=== PATIENT | male | born 1940 | race American Indian/Alaskan Native ===

== ENCOUNTER 2016-03-31 16:57 | Emergency (ER) | payer MEDICARE ==
[2016-03-31 19:59] LABS: Basophils % (Auto) 0.4 % (0.0-1.8); Eosinophils % (Auto) 1.7 % (0.0-4.3); Hematocrit 38.8 % (35.5-45.6); Hemoglobin 12.6 gm/dl (11.8-15.2); Mean Corpuscular HGB Conc 32 % (32-34); Mean Corpuscular Hemoglobin 32 pg (28-32); Mean Corpuscular Volume 98 fl (84-94); Platelet Count 132 K/mm3 (140-440); Red Blood Count 3.98 M/mm3 (3.65-5.03); Red Cell Distribution Width 15.5 % (13.2-15.2); White Blood Count 10.1 K/mm3 (4.5-11.0)
[2016-03-31 20:16] LABS: Creatine Kinase MB 24.1 ng/mL (0.0-4.0)
[2016-03-31 20:18] LABS: BUN/Creatinine Ratio 4.23; Calcium 7.9 mg/dL (8.4-10.2); Chloride 94.7 mmol/L (98-107); Potassium 4.1 mmol/L (3.6-5.0)
--- NOTE | 2016-03-31 20:23 | Emergency Department Report ---
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 Apparently patient's blood pressure with sweating throughout dialysis treatment today. Patient reports feeling better. Blood pressure 96/53 upon arrival in systolic 107 during my examination at the bedside. Patient complains of right hand pain has been ongoing since IV infiltration in the hospital week or 2 ago. No reports of fever, chest pain, shortness of breath, or abdominal pain. Health Claims Examiner: Dr. Gilbert - Related Data Home Medications Medication Instructions Recorded Confirmed Last Taken Acetaminophen [Acetaminophen TAB] 650 mg PO Q6HR PRN 03/11/16 03/31/16 03/24/16 Aspirin [Aspirin TAB] 325 mg PO QDAY 03/11/16 03/31/16 03/21/16 Carvedilol [Coreg] 25 mg PO BID 03/11/16 03/31/16 03/25/16 Insulin Glargine,Hum.rec.anlog 20 units SQ QHS 03/11/16 03/31/16 03/23/16 [Lantus Solostar] Insulin Glulisine [Apidra] 0 units SQ AC 03/11/16 03/31/16 03/23/16 Lactulose 10 gm PO QDAY 03/11/16 03/31/16 Unknown Promethazine [Phenergan TAB] 25 mg PO Q6HR PRN 03/11/16 03/31/16 Unknown Sennosides [Senna] 2 tab PO QDAY 03/11/16 03/31/16 03/23/16 Warfarin [Coumadin] 5 mg PO QDAY 03/11/16 03/31/16 03/21/16 Sevelamer Carbonate [Renvela] 800 mg PO TIDWM 03/31/16 03/31/16 Unknown Torsemide [Demadex] 20 mg PO BID 03/31/16 03/31/16 Unknown Previous Rx's Medication Instructions Recorded Last Taken Type Cilostazol [Pletal] 100 mg PO BID #60 tablet 04/29/15 02/12/17 Rx Simvastatin [Zocor TAB] 40 mg PO QHS #30 tablet 12/06/15 03/23/16 Rx oxyCODONE /ACETAMINOPHEN [Percocet 1 - 2 tab PO Q4HR #40 tab 03/26/16 Unknown Rx 5/325] Allergies Allergy/AdvReac Type Severity Reaction Status Date / Time No Known Allergies Allergy Verified 11/30/15 00:22 ED Review of Systems ROS: Stated complaint: AMS/LOW BP Other details as noted in HPI Comment: All other systems reviewed and negative Other: Constitutional: No fevers chills Eyes: No eye pain visual changes ENT: No ear pain or throat pain Neck: Denies pain Respiratory: Denies cough wheezing shortness of breath Cardiovascular: Denies chest pain, palpitations GI: Denies abdominal pain, nausea, vomiting, diarrhea : Denies dysuria Musculoskeletal: right hand pain as per hpi Skin: Denies rash, lesions, erythema Neurologic: Denies headache, numbness, weakness Psychiatric: Denies suicidal ideation, hallucinations ED Past Medical Hx - Past Medical History Previous Medical History?: Yes Hx Hypertension: Yes (10 YRS) Hx Heart Attack/AMI: No Hx Congestive Heart Failure: Yes Hx Diabetes: Yes (MANY YEARS) Hx GERD: Yes Hx Liver Disease: No Hx Renal Disease: Yes (dialysis M/W/F) Hx Arthritis: Yes (HANDS AND FEET) Hx Asthma: No - Surgical History Past Surgical History?: Yes Additional Surgical History: peritoneal dialysis port, AV graft to left forearm - Social History Smoking Status: Never Smoker Substance Use Type: None - Medications Home Medications: Home Medications Medication Instructions Recorded Confirmed Last Taken Type Cilostazol [Pletal] 100 mg PO BID #60 tablet 06/07/14 03/31/16 03/23/16 Rx Simvastatin [Zocor TAB] 40 mg PO QHS #30 tablet 12/06/15 03/31/16 03/23/16 Rx Acetaminophen [Acetaminophen TAB] 650 mg PO Q6HR PRN 03/11/16 03/31/16 03/24/16 History Aspirin [Aspirin TAB] 325 mg PO QDAY 03/11/16 03/31/16 03/21/16 History Carvedilol [Coreg] 25 mg PO BID 03/11/16 03/31/16 03/25/16 History Insulin Glargine,Hum.rec.anlog 20 units SQ QHS 03/11/16 03/31/16 03/23/16 History [Lantus Solostar] Insulin Glulisine [Apidra] 0 units SQ AC 03/11/16 03/31/16 03/23/16 History Lactulose 10 gm PO QDAY 03/11/16 03/31/16 Unknown History Promethazine [Phenergan TAB] 25 mg PO Q6HR PRN 03/11/16 03/31/16 Unknown History Sennosides [Senna] 2 tab PO QDAY 03/11/16 03/31/16 03/23/16 History Warfarin [Coumadin] 5 mg PO QDAY 03/11/16 03/31/16 03/21/16 History oxyCODONE /ACETAMINOPHEN [Percocet 1 - 2 tab PO Q4HR #40 tab 03/26/16 03/31/16 Unknown Rx 5/325] Sevelamer Carbonate [Renvela] 800 mg PO TIDWM 03/31/16 03/31/16 Unknown History Torsemide [Demadex] 20 mg PO BID 03/31/16 03/31/16 Unknown History ED Physical Exam - General Limitations: No Limitations - Other Other exam information: General: No limitations, patient is alert in no acute distress Head exam: Atraumatic, normocephalic Eyes exam: Normal appearance, pupils equal reactive to light, extraocular movements intact ENT: Moist mucous membrane, normal oropharynx Neck exam: Normal inspection, full range of motion Respiratory exam: Clear to auscultation bilateral, no wheezes, rales, crackles Cardiovascular: Normal rate and rhythm, systolic murmur Abdomen: Soft, nondistended, and nontender, with normal bowel sounds, no rebound, or guarding Extremity: Full range of motion dorsum of right hand has a 10 x 7 cm bulla tenderness to palpation Back: Normal Inspection, full range of motion, no tenderness Neurologic: Alert, oriented x3, cranial nerves intact, no motor or sensory deficit Psychiatric: normal affect, normal mood Skin: Warm, dry, intact ED Course Vital Signs 03/31/16 03/31/16 03/31/16 18:12 18:20 18:21 Temperature 98 F Pulse Rate 91 H 89 Respiratory 13 14 Rate Blood Pressure 96/53 96/53 O2 Sat by Pulse 96 92 96 Oximetry 03/31/16 03/31/16 03/31/16 18:30 18:40 18:50 Temperature Pulse Rate 120 H 94 H 90 Respiratory 9 L 10 L 9 L Rate Blood Pressure 110/58 110/58 120/56 O2 Sat by Pulse 96 98 99 Oximetry 03/31/16 03/31/16 03/31/16 19:00 19:18 19:32 Temperature 98.0 F Pulse Rate 85 Respiratory 8 L 18 Rate Blood Pressure 101/36 O2 Sat by Pulse 94 98 Oximetry - Reevaluation(s) Reevaluation #1: 03/31/16 21:11 Patient remained stable and not orthostatic - Consultations Consultation #1: 03/31/16 20:[address] Betancur commissions specialist for Dr. Laughlin. Since ED workup was unremarkable and patient remains normotensive recommends patient may be discharged. - Lab Data Result diagrams: 03/31/16 19:30 03/31/16 19:30 Lab Results 03/31/16 03/31/16 Range/Units 19:30 19:30 WBC 10.1 (4.5-11.0) K/mm3 RBC 3.98 (3.65-5.03) M/mm3 Hgb 12.6 (11.8-15.2) gm/dl Hct 38.8 (35.5-45.6) % MCV 98 H (84-94) fl MCH 32 (28-32) pg MCHC 32 (32-34) % RDW 15.5 H (13.2-15.2) % Plt Count 132 L (140-440) K/mm3 Lymph % (Auto) 18.2 (13.4-35.0) % Villalba % (Auto) 8.0 H (0.0-7.3) % Eos % (Auto) 1.7 (0.0-4.3) % Baso % (Auto) 0.4 (0.0-1.8) % Lymph # 1.8 (1.2-5.4) K/mm3 Villalba # 0.8 (0.0-0.8) K/mm3 Eos # 0.2 (0.0-0.4) K/mm3 Baso # 0.0 (0.0-0.1) K/mm3 Seg Neutrophils % 71.7 H (40.0-70.0) % Seg Neutrophils # 7.2 (1.8-7.7) K/mm3 Sodium 136 L (137-145) mmol/L Potassium 4.1 (3.6-5.0) mmol/L Chloride 94.7 L (98-107) mmol/L Carbon Dioxide 23 D (22-30) mmol/L Anion Gap 22 mmol/L BUN 25 H (9-20) mg/dL Creatinine 5.9 H (0.8-1.5) mg/dL Estimated GFR 11 ml/min BUN/Creatinine Ratio 4.23 % Glucose 122 H (75-100) mg/dL Calcium 7.9 L (8.4-10.2) mg/dL CK-MB (CK-2) 24.1 H (0.0-4.0) ng/mL Troponin T 0.196 H* (0.00-0.029) ng/mL Triglycerides 122 (2-149) mg/dL Cholesterol 119 (50-199) mg/dL LDL Cholesterol Direct 62 (50-130) mg/dL HDL Cholesterol 33 L (40-59) mg/dL Cholesterol/HDL Ratio 3.60 % - EKG Data -: EKG Interpreted by Me (sinus tachy 119, premature ventricular contractions, lafb) - Medical Decision Making Patient be discharged home. Transient hypotension and altered mental status likely secondary to iron depletion during dialysis. Patient now back to normal. Labs unremarkable. Presents chronic troponin elevation which is consistent with previous labs. Will be discharged home with follow-up - Differential Diagnosis volumdepletion, infect hypotension, encephalopathy, electrolyte abnormality Critical Care Time: No Critical care attestation.: If time is entered above; I have spent that time in minutes in the direct care of this critically ill patient, excluding procedure time. ED Disposition Clinical Impression: Transient hypotension, ESRD (end stage renal disease) on dialysis, [place] Disposition: DISCHARGED TO HOME OR SELFCARE Is pt being admited?: No Does the pt Need Aspirin: No Condition: Stable Instructions: Chronic Kidney Disease (ED) Additional Instructions: Continue current medications as prescribed. Return if symptoms worsen. Referrals: PRIMARY CARE, [Primary Care Provider] - 2-3 Days Time of Disposition: 21:12
[2016-04-01 00:53] VITALS: BP 127/61
== END 2016-04-01 00:05 | disposition home or self-care (01) ==
LOC: ED 16:57
DX: I95.89 Other hypotension (principal); I12.0 Hypertensive chronic kidney disease with stage 5 chronic kidney disease or end stage renal disease; N18.6 End stage renal disease; E11.9 Type 2 diabetes mellitus without complications; I50.9 Heart failure, unspecified; K21.9 Gastro-esophageal reflux disease without esophagitis; M19.079 Primary osteoarthritis, unspecified ankle and foot; M13.88 Other specified arthritis, other site; Z79.4 Long term (current) use of insulin
CPT/HCPCS: 36415; 80048; 80061; 82550; 82553; 84484; 85025; 93005; 93010

== ENCOUNTER 2016-04-22 22:48 | Emergency (ER) | payer MEDICARE ==
[2016-04-23 01:47] LABS: Basophils % (Auto) 0.4 % (0.0-1.8); Eosinophils % (Auto) 1.6 % (0.0-4.3); Hematocrit 37.2 % (35.5-45.6); Hemoglobin 11.9 gm/dl (11.8-15.2); Mean Corpuscular HGB Conc 32 % (32-34); Mean Corpuscular Hemoglobin 30 pg (28-32); Mean Corpuscular Volume 94 fl (84-94); Platelet Count 202 K/mm3 (140-440); Red Blood Count 3.94 M/mm3 (3.65-5.03); White Blood Count 5.7 K/mm3 (4.5-11.0)
[2016-04-23] MEDS ORDERED: ZOFRAN ODT PO ONE (02:15)
[2016-04-23] MEDS ORDERED: MORPHINE IM ONE (02:15)
--- NOTE | 2016-04-23 02:18 | Emergency Department Report ---
HPI - General Chief Complaint: Pain General Time Seen by Provider: 04/23/16 01:48 - HPI HPI: The patient is a 76-year-old male who presents for evaluation of recurrence of right groin pain. He states that his pain has been present for the past one week, 9/10 in severity, throbbing in quality, exacerbated with standing and attempts to ambulate, improved with lying flat and rest. He shares that he was evaluated here in this emergency department within the past one week, and diagnosed with inguinal hernia. He states that he followed up with his PCP earlier today and has scheduled an appointment with surgery regarding his hernia. He denies trauma to the right groin, abdominal pain, testicular pain, testicular swelling, redness, bruising, or swelling to the right groin, nausea, vomiting, inability to pass flatus or defecate. ED Past Medical Hx - Past Medical History Hx Hypertension: Yes (10 YRS) Hx CVA: Yes Hx Heart Attack/AMI: No Hx Congestive Heart Failure: Yes Hx Diabetes: Yes (MANY YEARS) Hx GERD: Yes Hx Liver Disease: No Hx Renal Disease: Yes (dialysis M/W/F) Hx Arthritis: Yes (HANDS AND FEET) Hx Asthma: No Additional medical history: v-fib, Inguinal hernia - Surgical History Past Surgical History?: Yes Additional Surgical History: peritoneal dialysis port, AV graft to left forearm - Social History Smoking Status: Never Smoker Substance Use Type: None - Medications Home Medications: Home Medications Medication Instructions Recorded Confirmed Last Taken Type Cilostazol [Pletal] 100 mg PO BID #60 tablet 06/07/14 04/23/16 03/23/16 Rx Simvastatin [Zocor TAB] 40 mg PO QHS #30 tablet 12/06/15 04/23/16 03/23/16 Rx Acetaminophen [Acetaminophen TAB] 650 mg PO Q6HR PRN 03/11/16 04/23/16 03/24/16 History Aspirin [Aspirin TAB] 325 mg PO QDAY 03/11/16 04/23/16 03/21/16 History Carvedilol [Coreg] 25 mg PO BID 03/11/16 04/23/16 03/25/16 History Insulin Glargine,Hum.rec.anlog 20 units SQ QHS 03/11/16 04/23/16 03/23/16 History [Lantus Solostar] Insulin Glulisine [Apidra] 0 units SQ AC 03/11/16 04/23/16 03/23/16 History Lactulose 10 gm PO QDAY 03/11/16 04/23/16 Unknown History Promethazine [Phenergan TAB] 25 mg PO Q6HR PRN 03/11/16 04/23/16 Unknown History Sennosides [Senna] 2 tab PO QDAY 03/11/16 04/23/16 03/23/16 History Warfarin [Coumadin] 5 mg PO QDAY 03/11/16 04/23/16 03/21/16 History Sevelamer Carbonate [Renvela] 800 mg PO TIDWM 03/31/16 04/23/16 Unknown History Torsemide [Demadex] 20 mg PO BID 03/31/16 04/23/16 Unknown History Sulfamethoxazole/Trimethoprim 1 each PO BID #20 tablet 04/19/16 04/23/16 Unknown Rx [Bactrim DS TAB] Oxycodone HCl/Acetaminophen 1 each PO Q6HR PRN #20 tablet 04/23/16 Unknown Rx [Percocet 10/325 mg] ED Review of Systems ROS: Stated complaint: GROIN PAIN/HERNIA Other details as noted in HPI Constitutional: denies: fever ENT: denies: throat or neck pain Respiratory: denies: cough, shortness of breath Cardiovascular: denies: chest pain Endocrine: denies unexplained weight loss or gain Gastrointestinal: reports inguinal hernia denies: abdominal pain, nausea Genitourinary: denies: dysuria Musculoskeletal: denies: leg swelling Skin: denies: rash Neurological: denies: headache Hematological/Lymphatic: denies: easy bleeding or easy bruising Psych: denies sadness or hopelessness Physical Exam - Physical Exam Vital Signs: Vital Signs 04/22/16 04/22/16 04/22/16 22:56 23:00 23:02 Temperature 97 F L Blood Pressure 97/29 O2 Sat by Pulse 95 93 Oximetry 04/22/16 04/22/16 23:04 23:06 Temperature Blood Pressure 97/29 97/29 O2 Sat by Pulse 97 95 Oximetry Physical Exam: General: well-nourished, well-developed, no acute distress Head: Normocephalic, atraumatic Eyes: normal sclera ENT: Mucous membranes are pink and moist Neck: trachea midline, neck supple Respiratory: Breath sounds equal bilaterally, no wheezing, rales, or rhonchi Cardio: S1 and S2 present, no murmurs, rubs, gallops, capillary refill is brisk Abdomen: Normoactive bowel sounds, soft abdomen, no tenderness : Reducible right inguinal hernia present, tender to palpation, no testicular tenderness, swelling, or redness Chest WALL/Back: No tenderness to palpation of the chest wall, no CVA tenderness with percussion Musc: No hip tenderness bilaterally, no hip pain elicited with range of motion of the hips, No pitting edema Skin: No rash Neuro: no facial drooping, normal speech Psych: Normal affect ED Course Vital Signs 04/22/16 04/22/16 04/22/16 22:56 23:00 23:02 Temperature 97 F L Blood Pressure 97/29 O2 Sat by Pulse 95 93 Oximetry 04/22/16 04/22/16 23:04 23:06 Temperature Blood Pressure 97/29 97/29 O2 Sat by Pulse 97 95 Oximetry ED Medical Decision Making - Lab Data Result diagrams: 04/23/16 01:09 04/23/16 01:09 - Medical Decision Making The patient was seen and examined by myself. The patient is placed on a lunchroom monitor and continuous pulse ox. On initial evaluation, the patient was found to be in no distress. Evaluation orders were placed. The patient is given IM morphine for his pain. Medical records are reviewed and revealed that the patient received a ultrasound within the past week that is positive for inguinal hernia with Valsalva. CT scan of the abdomen and pelvis was negative for any bowel incarceration or strangulation. Lab results today revealed elevated creatinine of 6.7, grossly patient baseline for known end-stage renal disease. Otherwise labs were not concerning including normal potassium level and WBC. The patient was reevaluated and reported that their symptoms were markedly improved. The patient is stable for discharge with outpatient follow-up. The patient is given follow-up and return instructions. The patient expressed understanding and agreed with the plan. The patient is discharged in stable condition. Critical care attestation.: If time is entered above; I have spent that time in minutes in the direct care of this critically ill patient, excluding procedure time. ED Disposition Clinical Impression: Right groin pain, ESRD on peritoneal dialysis Inguinal hernia Qualifiers: Obstruction and gangrene presence: without obstruction or gangrene Laterality: unilateral Recurrence: recurrent Qualified Code(s): K40.91 - Unilateral inguinal hernia, without obstruction or gangrene, recurrent Disposition: DISCHARGED TO HOME OR SELFCARE Is pt being admited?: No Does the pt Need Aspirin: No Condition: Stable Instructions: Chronic Kidney Disease (ED), Inguinal Hernia (ED), Groin Pain (ED ) Prescriptions: Oxycodone HCl/Acetaminophen [Percocet 10/325 mg] 1 each PO Q6HR PRN #20 tablet PRN Reason: Pain Referrals: EL MAYERS MD [Primary Care Provider] - 3-5 Days WILBUR PERKINS MD [Staff Physician] - 3-5 Days OTF LOWERY MD [Staff Physician] - 3-5 Days Time of Disposition: 02:17
[2016-04-23 02:21] LABS: Albumin/Globulin Ratio 0.6 %; BUN/Creatinine Ratio 3.43; Bilirubin,Total 0.2 mg/dL (0.1-1.2); Calcium 8.4 mg/dL (8.4-10.2); Chloride 94.6 mmol/L (98-107); Potassium 4.7 mmol/L (3.6-5.0); Total Protein 7.8 g/dL (6.3-8.2)
[2016-04-23 06:16] VITALS: BP 124/39
== END 2016-04-23 06:08 | disposition home or self-care (01) ==
LOC: ED 22:48
DX: K40.91 Unilateral inguinal hernia, without obstruction or gangrene, recurrent (principal); R10.30 Lower abdominal pain, unspecified; I12.0 Hypertensive chronic kidney disease with stage 5 chronic kidney disease or end stage renal disease; N18.6 End stage renal disease; Z86.73 Personal history of transient ischemic attack (TIA), and cerebral infarction without residual deficits; I50.9 Heart failure, unspecified; E11.9 Type 2 diabetes mellitus without complications; M19.90 Unspecified osteoarthritis, unspecified site; Z79.4 Long term (current) use of insulin
CPT/HCPCS: 36415; 80053; 85025; 96372; 99284; J2270; Q0162

== ENCOUNTER 2016-04-29 13:09 | Emergency (ER) | payer MEDICARE ==
[2016-04-29 13:34] VITALS: BP 106/48
--- NOTE | 2016-04-29 14:33 | Emergency Department Report ---
HPI - General Chief Complaint: Abdominal Pain Time Seen by Provider: 04/29/16 13:54 - HPI HPI: This is a 76-year-old -Citizen Of [place] male who presents to the emergency department from the surgeon's office, Dr. Abdul, for evaluation of possible right groin hernia. The patient says that he has been having some swelling and pain to the groin, mostly when he is upright or standing, for the past 3 weeks. He denies any nausea, vomiting, problems with bowel movements, fever. Patient does not make urine as he is end-stage renal disease on dialysis on Thursday, Thursday and Thursday. He also has a history of CHF, CVA, diabetes, GERD , hypertension. He was sent in to be seen for evaluation of this possible hernia because the patient does have some chronic debility and the surgeon was unable to stand him upright to do a proper evaluation. ED Past Medical Hx - Past Medical History Previous Medical History?: Yes Hx Hypertension: Yes (10 YRS) Hx CVA: Yes Hx Heart Attack/AMI: No Hx Congestive Heart Failure: Yes Hx Diabetes: Yes (MANY YEARS) Hx GERD: Yes Hx Liver Disease: No Hx Renal Disease: Yes (dialysis M/W/F) Hx Arthritis: Yes (HANDS AND FEET) Hx Asthma: No Additional medical history: v-fib - Surgical History Past Surgical History?: Yes Additional Surgical History: peritoneal dialysis port, AV graft to left forearm - Social History Smoking Status: Never Smoker Substance Use Type: None - Medications Home Medications: Home Medications Medication Instructions Recorded Confirmed Last Taken Type Cilostazol [Pletal] 100 mg PO BID #60 tablet 06/07/14 04/23/16 03/23/16 Rx Simvastatin [Zocor TAB] 40 mg PO QHS #30 tablet 12/06/15 04/23/16 03/23/16 Rx Acetaminophen [Acetaminophen TAB] 650 mg PO Q6HR PRN 03/11/16 04/23/16 03/24/16 History Aspirin [Aspirin TAB] 325 mg PO QDAY 03/11/16 04/23/16 03/21/16 History Carvedilol [Coreg] 25 mg PO BID 03/11/16 04/23/16 03/25/16 History Insulin Glargine,Hum.rec.anlog 20 units SQ QHS 03/11/16 04/23/16 03/23/16 History [Lantus Solostar] Insulin Glulisine [Apidra] 0 units SQ AC 03/11/16 04/23/16 03/23/16 History Lactulose 10 gm PO QDAY 03/11/16 04/23/16 Unknown History Promethazine [Phenergan TAB] 25 mg PO Q6HR PRN 03/11/16 04/23/16 Unknown History Sennosides [Senna] 2 tab PO QDAY 03/11/16 04/23/16 03/23/16 History Warfarin [Coumadin] 5 mg PO QDAY 03/11/16 04/23/16 03/21/16 History Sevelamer Carbonate [Renvela] 800 mg PO TIDWM 03/31/16 04/23/16 Unknown History Torsemide [Demadex] 20 mg PO BID 03/31/16 04/23/16 Unknown History Sulfamethoxazole/Trimethoprim 1 each PO BID #20 tablet 04/19/16 04/23/16 Unknown Rx [Bactrim DS TAB] Oxycodone HCl/Acetaminophen 1 each PO Q6HR PRN #20 tablet 04/23/16 Unknown Rx [Percocet 10/325 mg] ED Review of Systems ROS: Stated complaint: HERNIA Other details as noted in HPI Comment: All other systems reviewed and negative Constitutional: denies: chills, fever Eyes: denies: eye pain, eye discharge, vision change ENT: denies: ear pain, throat pain Respiratory: denies: cough, shortness of breath, wheezing Cardiovascular: denies: chest pain, palpitations Gastrointestinal: denies: nausea, vomiting Genitourinary: other (groin pain, possible hernia). denies: dysuria, frequency Musculoskeletal: denies: back pain, joint swelling, arthralgia Skin: denies: rash, lesions Neurological: denies: headache, weakness, paresthesias Physical Exam - Physical Exam Vital Signs: Vital Signs 04/29/16 13:29 Temperature 98.2 F Pulse Rate 81 Respiratory 20 Rate Blood Pressure 106/48 O2 Sat by Pulse 94 Oximetry Physical Exam: GENERAL: The patient is well-developed well-nourished. HEENT: Normocephalic. Atraumatic. Extraocular motions are intact. Patient has moist mucous membranes. Pupils equal reactive to light bilaterally. NECK: Supple. Trachea is midline. CHEST/LUNGS: Clear to auscultation. There is no respiratory distress noted. HEART/CARDIOVASCULAR: Regular. There is no tachycardia. There is no gallop rub or murmur. ABDOMEN: Abdomen is soft, nontender. Patient has normal bowel sounds. There is no abdominal distention. SKIN: Skin is warm and dry. Patient has his right hand bandaged. NEURO: The patient is awake, alert, and oriented. The patient is cooperative. The patient has no focal neurologic deficits. The patient has normal speech. MUSCULOSKELETAL: There is no tenderness or deformity. There is no evidence of acute injury. : Normal-appearing penis and scrotum without lesions. No tenderness to palpation to either region. There is no palpable indirect hernia. I'm able to palpate a mild right-sided direct reducible hernia. ED Course Vital Signs 04/29/16 13:29 Temperature 98.2 F Pulse Rate 81 Respiratory 20 Rate Blood Pressure 106/48 O2 Sat by Pulse 94 Oximetry - Consultations Consultation #1: The patient was seen and examined by the general surgeon, Dr. Elisabeth hernandez, in the emergency department. The emergency department staff helped to get the patient up and standing and the patient does have a right direct hernia but it is reducible. The surgeon feels that the patient is safe for discharge back to follow-up with his primary care doctor and if necessary back with the surgeon himself. 04/29/16 14:32 ED Medical Decision Making - Medical Decision Making This is a 76-year-old male who was sent in by his general surgeon so that the surgeon himself could evaluate him in the emergency department with the assistance of emergency department staff to help the patient stand so that he can be assessed for possible incarcerated or strangulated inguinal hernia. I saw the patient first and there is some palpable but reproducible right direct inguinal hernia. Patient's vital signs stable throughout his ED course. The general surgeon then came into the emergency department and also during evaluation confirming that there is a reducible right-sided direct inguinal hernia and that this does not need any further surgical or medical intervention at this time. The patient has good follow-up with his primary care doctor's and can continue following up with the surgeon if necessary. I discussed with the patient at length reasons to return for reevaluation of this hernia but also to return with any acute distress. He understands and agrees the plan. - Differential Diagnosis hernia, abscess, muscle strain Critical Care Time: No Critical care attestation.: If time is entered above; I have spent that time in minutes in the direct care of this critically ill patient, excluding procedure time. ED Disposition Clinical Impression: Direct hernia Disposition: DISCHARGED TO HOME OR SELFCARE Is pt being admited?: No Condition: Stable Instructions: Inguinal Hernia (ED) Additional Instructions: Please follow-up with your primary care doctor and the general surgeon regarding your hernia. Return to the emergency department with any worsening of your discomfort, if the hernia pops out and you are unable to get it back in place, or with any acute distress. Referrals: EL MAYERS MD [Primary Care Provider] - 3-5 Days ANJALI ABDUL MD [Staff Physician] - 3-5 Days Time of Disposition: 14:33
== END 2016-04-29 15:14 | disposition home or self-care (01) ==
LOC: ED 13:09
DX: K40.90 Unilateral inguinal hernia, without obstruction or gangrene, not specified as recurrent (principal); I10 Essential (primary) hypertension; I63.9 Cerebral infarction, unspecified; I50.9 Heart failure, unspecified; E11.9 Type 2 diabetes mellitus without complications; K21.9 Gastro-esophageal reflux disease without esophagitis; M19.90 Unspecified osteoarthritis, unspecified site; Z79.82 Long term (current) use of aspirin; Z79.4 Long term (current) use of insulin; Z79.01 Long term (current) use of anticoagulants
CPT/HCPCS: 99282

== ENCOUNTER 2016-05-01 09:41 | Outpatient (CLI) | payer MEDICARE ==
[2016-05-01] MEDS ORDERED: XYLOCAINE TOPICAL 4% TP ONE ×2 (10:04→16:05)
== END 2016-05-01 09:42 | disposition home or self-care (01) ==
LOC: WOUND 09:41
PROVIDERS: ATTEND Nurse Practitioner
DX: S61.401A Unspecified open wound of right hand, initial encounter (principal); E08.622 Diabetes mellitus due to underlying condition with other skin ulcer; L98.6 Other infiltrative disorders of the skin and subcutaneous tissue; R01.1 Cardiac murmur, unspecified; E09.22 Drug or chemical induced diabetes mellitus with diabetic chronic kidney disease; N18.6 End stage renal disease; X58.XXXA Exposure to other specified factors, initial encounter; Y93.89 Activity, other specified; Y92.89 Other specified places as the place of occurrence of the external cause; Y99.8 Other external cause status
CPT/HCPCS: 99203; 99213; G0463

== ENCOUNTER 2016-06-05 10:58 | Outpatient (CLI) | payer MEDICARE ==
[2016-06-05] MEDS ORDERED: LEXISCAN IV ONE (12:28)
[2016-06-05 13:21] VITALS: BP 116/55
--- NOTE | 2016-06-05 22:26 | Treadmill Report ---
THALLIUM STRESS TEST LEFT VENTRICLE: Left ventricular chamber size is within normal limits. Perfusion study demonstrates homogeneous uptake of the tracer in all segments. No significant defects identified. Gated analysis demonstrates normal left ventricular systolic function, ejection fraction 67%. CONCLUSION: Normal myocardial perfusion study. JOB# [id number] CA/NTS
== END 2016-06-05 10:59 | disposition home or self-care (01) ==
LOC: CARD 10:58
PROVIDERS: ATTEND Internal Medicine Cardiovascular Disease
DX: R94.31 Abnormal electrocardiogram [ECG] [EKG] (principal)
CPT/HCPCS: 78452; 93017; A9502; J2785

== ENCOUNTER 2016-07-04 12:48 | Observation (INO) | payer MEDICARE ==
--- NOTE | 2016-06-30 21:13 | Admit Criteria Form ---
Admission Criteria Documentation: AMBULATORY SURGERY EXCEPTION CRITERIA Ambulatory Surgery Exception Criteria ( Place 'X' for any and all applicable criteria): Surgery or procedure performed on ambulatory basis may require inpatient stay for[A] ANY ONE of the following(1)(2)(3)(4)(5)(6)(7)(8)(9): [X] I. A preoperative situation, condition, or finding that warrants inpatient stay as indicated by ANY ONE of the following: [] a) Inpatient care needed because of severity of a disease or condition rather than the surgery (eg, severe cardiac or respiratory disease, severe infection) (15) (16 ) (17) (18) [] b) Emergent procedure (eg, angioplasty for acute ischemia)(19) [X] c) Complex surgical approach or situation as indicated by ANY ONE of the following(3): [X] i) Open approach needed instead of usual endoscopic, transcatheter, or other less invasive procedure [] ii) Difficult approach because of previous operation [] iii) Airway monitoring required after open neck procedures(20)(21) [] iv) Large mass requiring unusually extensive dissection [] v) Additional complicating feature requiring inpatient care (eg, drain management)(22(23): [] d) Major surgery in a pt with high anesthetic risk as indicated by ANY ONE of the following (2)(3)(5)(7)(8): [] i) ASA risk class III or higher (severe systemic disease impairing function) [D] [] ii) Advanced age (eg, older than 85 years)(14)(24) [] iii) Symptomatic heart failure(25) [] iv) Symptomatic asthma or COPD(8)(21) [] v) Morbid obesity with hemodynamic or respiratory problems(20)( 21)(26)(27) [] vi) Obstructive sleep apnea(20)(21) [] vii) Former premature infants who are younger than 60 weeks [] viii) High risk for severe postoperative abnormalities (eg, severe postoperative hypocalcemia after parathyroidectomy for severe hyperparathyroidism)(27)( 28) [] ix) Unstable angina(25) [] e) Drug-related risk requiring inpatient stay as indicated by ANY ONE of the following(5)(10)(14)(32)(33) [] i) Procedure requires discontinuing drugs or other therapy (eg , antiarrhythmic medication, antiseizure medication), which necessitates inpatient observation or treatment.(18)(31) [] ii) Major surgery and high risk drug use as indicated by ANY ONE of the following: [] 1) Active abuse of cocaine or similar drug [] 2) Monoamine oxidase inhibitor use [] 3) Other drug identified as posing risk [] f) Inadequate outpatient care situation as indicated by ANY ONE of the following(5)(10)(14)(32)(33) [] i) Patient lives remote from medical facility and procedure has urgent complication potential, and temporary nearby residence cannot be arranged [] ii) Patient will have postprocedure incapacitation and inadequate assistance at home, or alternative level of care cannot be arranged. [] iii) Patient will have long general anesthesia or procedure side effect resolution time, and competent person to stay with patient on first postoperative night at home or alternative level of care cannot be arranged. []iv) Other inadequate outpatient situation that cannot be handled by other means [] II. A perioperative event, condition, or finding that warrants inpatient stay as indicated by ANY ONE of the following (1)(2)(3): [] a) Inadequate physiologic recovery: cardiovascular, respiratory, or hemodynamic status not normal or near preoperative baseline(18) [] b) Hemodynamic instability [] c) Patient not alert with near normal or baseline mental status [] d) Temperature not normal or as expected and not appropriate for outpatient treatment of condition [] e) Ambulatory or appropriate activity level status not yet achieved post procedure [E](34)(35)(36) [] f) Operative site not appropriate (eg, unexpected or excessive drainage or bleeding) [] g) Postoperative effects not resolved or adequately managed (eg, significant pain or vomiting not appropriate for outpatient or next level of care)(10)(12) [] h) Complicating features requiring inpatient care as indicated by ANY ONE of the following(37): [] i) Severe complications of procedure (eg, bowel injury, airway compromise, vascular injury,severe hemorrhage) [] ii) Extensive (eg, dissection far beyond usual scope of procedure ) or prolonged (eg, 120 minutes beyond usual) surgery needed requiring inpatient postoperative care [] iii) Conversion to an open or complex procedure that requires inpatient care (eg, open vs laparoscopic cholecystectomy, abdominal vs vaginal hysterectomy)(38) [] iv) Comorbid condition or test result identified during or post procedure that requires inpatient care (7) [] v) Malignant hyperthermia(30) [] vi) Other complicating feature requiring inpatient care(22)(23) Inpatient stay may be needed until ALL of the following are present (1)(2)(3)(4) (5)(6)(10)(14)(33)(40): []a) Physiologic recovery: cardiovascular, respiratory, and hemodynamic status normal or near preoperative baseline []b) Hemodynamic stability []c) Patient alert, with near normal or baseline mental status []d) Temperature appropriate: patient afebrile or temperature appropriate for outpt treatment of condition []e) Activity level appropriate: ambulatory or appropriate activity level post procedure []f) Operative site appropriate as indicated by ALL of the following: []i) Site dry or with expected drainage []ii) Any blood noted is as expected for procedure. []g) Postoperative effects resolved or managed as indicated by ALL of the following: []i) Pain management appropriate for outpatient (or next level of) care(10) []ii) Minimal nausea and vomiting: if present, successfully treated with oral medication(12) []iii) Headache, dizziness, or drowsiness (if present) are mild. []h) Voiding status acceptable as indicated by ANY ONE of the following: []i) Voiding spontaneously []ii) No voiding but instructions given for follow-up in 6 to 8 hours []iii) Urinary catheter in place, and instructions given for follow-up []i) Complicating features requiring inpatient care manageable at a lower level of care(37) []j) Comorbid conditions manageable at a lower level of care(37) The original [employer] content created by [employer] has been revised. The portions of the content which have been revised are identified through the use of italic text or in bold, and [employer] has neither reviewed nor approved the modified material. All other unmodified content is copyright [employer]. Please see references footnoted in the original [employer] edition 2016
[~2016-07-04 12:48] MED LIST: ceFAZolin 2 GM in NACL 0.9% 100 ML IV ONE
--- NOTE | 2016-07-04 13:39 | Anesthesia Day of Surgery ---
Anesthesia Day of Surgery - Day of Surgery Patient Examined: Yes Patient H&P Reviewed: Yes Patient is NPO: Yes
[2016-07-04] MEDS ORDERED: ZOFRAN IV PRN ×2 (13:41→18:18)
[2016-07-04] MEDS ORDERED: DILAUDID IV PRN (13:41)
[2016-07-04] MEDS ORDERED: SUBLIMAZE IV PRN (13:41)
--- NOTE | 2016-07-04 13:41 | Anesthesia Consultation ---
Anesthesia Consult and Med Hx Date of service: 07/04/16 - Airway Anesthetic Teeth Evaluation: Poor ROM Head & Neck: Adequate Mental/Hyoid Distance: Adequate Mallampati Class: Class II Intubation Access Assessment: Probably Good - Pulmonary Exam CTA: Yes - Cardiac Exam Cardiac Exam: RRR - Pre-Operative Health Status ASA Pre-Surgery Classification: ASA4 Proposed Anesthetic Plan: General - Cardiovascular System Hx Hypertension: Yes (10 YRS) Hx Coronary Artery Disease: (high cholesterol) Hx Cardia Arrhythmia: Yes (atrial fibrilation; ST now - coumadin after removal of PD catheter) Hx Peripheral Vascular Disease: Yes - Central Nervous System CVA: Yes (summer 2014, mostly lt LE weakness ) Hx Back Pain: Yes (herniated disc, hurt when lay flat, needs back elevated) - Gastrointestinal Hx Ulcer: Yes (PAST GI BLEED) - Endocrine Hx Renal Disease: Yes Hx End Stage Renal Disease: Yes (on HD) Hx Insulin Dependent Diabetes: Yes Hx Non-Insulin Dependent Diabetes: Yes - Hematic Hx Anemia: Yes - Other Systems Hx Cancer: No
[2016-07-04] MEDS ORDERED: PEPCID PO NR (14:00)
[2016-07-04] MEDS ORDERED: ZEMURON IV ONE (14:00)
[2016-07-04] MEDS ORDERED: LACTATED RINGERS 1,000 ML IV SCH (14:00)
[2016-07-04] MEDS: NACL 0.9% 1000 ML 1,000 ML IV SCH (14:20)
[2016-07-04] MEDS ORDERED: ANCEF/STERILE WATER 2 GM/20 ML IV NR (14:53)
[2016-07-04] MEDS ORDERED: DIPRIVAN 10 MG/ML IV ONE (16:45)
[2016-07-04] MEDS ORDERED: DILAUDID ONE (16:45)
[2016-07-04] MEDS ORDERED: XYLOCAINE MPF 2% ONE (16:49)
[2016-07-04] MEDS ORDERED: MARCAINE-EPI 0.5%-1:200,000 INFILTRATI ONE ×3 (16:59→17:29)
[2016-07-04] MEDS ORDERED: ePHEDrine SULFATE ONE (17:24)
[2016-07-04] MEDS ORDERED: NACL 0.9% IR ONE (17:29)
[2016-07-04] MEDS ORDERED: ZOFRAN ONE (18:16)
[2016-07-04] MEDS ORDERED: ROBINUL ONE (18:16)
[2016-07-04] MEDS ORDERED: NEOSTIGMINE ONE (18:16)
--- NOTE | 2016-07-04 18:40 | Post Anesthesia Evaluation ---
- Post Anesthesia Evaluation Patient Participated: Yes Airway Patent: Yes Stable Respiratory Function: Yes Nausea/Vomiting: No Temp > 96.8F: Yes Pain Manageable: Yes Adequeate Hydration: Yes Anesthesia Complications: No
[2016-07-04] MEDS ORDERED: NACL 0.45% 1000 ML 1,000 ML IV SCH (19:00)
--- NOTE | 2016-07-04 21:35 | Operative Report ---
PREOPERATIVE DIAGNOSIS: Large right inguinal hernia. POSTOPERATIVE DIAGNOSIS: Large right inguinal hernia. PROCEDURE: Open right inguinal hernia repair with mesh. SURGEON: Kvng Garcia MD ANESTHESIA: General. ESTIMATED BLOOD LOSS: Minimal. No drains or complications. PROCEDURE IN DETAIL: The patient was taken to the operating room, prepped and draped in usual sterile fashion. Incision was made using his landmarks anterior superior iliac spine and pubic tubercle. Incision was carried down to the external oblique fascia. External oblique fascia was transected down to the external inguinal ring. The cord was then isolated at the level of the pubic tubercle with a [place] drain. Inspection of the cord revealed no indirect sac. Very large direct hernia was noted. The ____ was basically nonexistent and the femoral artery could be seen palpating at Mike's canal. A keyhole Marlex mesh was then used to reconstruct the inguinal canal floor. The mesh was tacked to the area of the distal Coopers and pubic tubercle with the tacker. Medially, the mesh was secured to the transversalis fascia and laterally to the iliopubic tract above the femoral artery and vein. The area was then irrigated copiously and dried. Checked for hemostasis and noted to be dry. The cord was then on laid over the mesh. All cord structures including the ilioinguinal nerves were identified and noted to be intact. External oblique fascia was then closed over the cord with running 3-0 Vicryl suture. Subcutaneous tissues irrigated and skin closed with marcella. 0.5% Marcaine with epinephrine was infiltrated over the fascia, subcutaneous and skin for postoperative pain relief. Ilioinguinal nerve block was also performed. The patient tolerated the procedure well and left the OR in stable condition. JOB# [id number] /NTS
[2016-07-04] MEDS: MORPHINE IV PRN (23:29)
[2016-07-05] MEDS: ANCEF/NS 1 GM/50 ML 1 GM/50 ML BAG IV SCH ×2 (02:35→10:18)
[2016-07-05] MEDS: MORPHINE IV PRN ×2 (04:49→10:19)
[2016-07-05 07:51] LABS: Basophils % (Auto) 0.1 % (0.0-1.8); Eosinophils % (Auto) 2.2 % (0.0-4.3); Hematocrit 34.9 % (35.5-45.6); Hemoglobin 11.3 gm/dl (11.8-15.2); Mean Corpuscular HGB Conc 32 % (32-34); Mean Corpuscular Hemoglobin 31 pg (28-32); Mean Corpuscular Volume 97 fl (84-94); Platelet Count 151 K/mm3 (140-440); Red Blood Count 3.61 M/mm3 (3.65-5.03); Red Cell Distribution Width 18.2 % (13.2-15.2); White Blood Count 7.2 K/mm3 (4.5-11.0)
[2016-07-05 08:03] LABS: BUN/Creatinine Ratio 5.51; Calcium 8.2 mg/dL (8.4-10.2); Chloride 99.6 mmol/L (98-107); Potassium 3.9 mmol/L (3.6-5.0)
[2016-07-05] MEDS: NORCO 5/325 PO PRN (09:33)
[2016-07-05] MEDS: NACL 0.9% 1000 ML 1,000 ML IV SCH (09:36)
--- NOTE | 2016-07-05 10:32 | History and Physical Report ---
History of Present Illness Date of examination: 07/05/16 Date of admission: 07/04/16 18:18 Chief complaint: Right inguinal hernia repair History of present illness: Patient is 76 years old with Hx of HTN, CHF, Diabetes, PVD, Hyperlipidemia,ESRD , CVA with LE weakness. Patient has had right Inguinal hernia repair,This procedure occurred 07/04/2016. Patient tolerated the procedure well and Post- operatively he is stable. Patient denies fever or chills. Patient denies having pain at present time. Patient have dialysis on .W. Past History Past Medical History: anemia, diabetes, DVT, ESRD, hyperthyroidism, hypertension , hyperlipidemia, PVD, renal failure, stroke, other (A-fib on cumadin) Past Surgical History: hernia repair Family history: CAD, hypertension, stroke Medications and Allergies Allergies Allergy/AdvReac Type Severity Reaction Status Date / Time No Known Allergies Allergy Verified 11/30/15 00:22 Home Medications Medication Instructions Recorded Confirmed Last Taken Type Cilostazol [Pletal] 100 mg PO BID #60 tablet 06/07/14 06/26/16 03/23/16 Rx Simvastatin [Zocor TAB] 40 mg PO QHS #30 tablet 12/06/15 06/26/16 03/23/16 Rx Aspirin [Aspirin TAB] 325 mg PO QDAY 03/11/16 06/26/16 03/21/16 History Carvedilol [Coreg] 25 mg PO BID 03/11/16 06/26/16 03/25/16 History Insulin Glargine,Hum.rec.anlog 20 units SQ QHS 03/11/16 06/26/16 03/23/16 History [Lantus Solostar] Lactulose 10 gm PO QDAY 03/11/16 06/26/16 Unknown History Warfarin [Coumadin] 5 mg PO QDAY 03/11/16 06/26/16 03/21/16 History Torsemide [Demadex] 20 mg PO BID 03/31/16 06/26/16 Unknown History HYDROcodone/APAP 5-325 [[place] 1 each PO Q4HR PRN #30 tablet 07/06/16 Unknown Rx 5/325] Sennosides Tab [Senokot] 8.6 mg PO QDAY tablet 07/06/16 Unknown Rx Sevelamer Carbonate [Renvela] 800 mg PO TIDWM tablet 07/06/16 Unknown Rx Active Meds: Active Medications Acetaminophen/Hydrocodone Bitart ([place] 5/325) 2 each PO Q6H PRN PRN Reason: Pain, Moderate (4-6) Last Admin: 07/05/16 09:33 Dose: 2 each Famotidine (Pepcid) 20 mg PO PREOP NR Stop: 07/05/16 13:59 Last Admin: 07/04/16 15:03 Dose: 20 mg Fentanyl (Sublimaze) 50 mcg IV Q5MIN PRN PRN Reason: Pain , Severe (7-10) Stop: 07/07/16 13:42 Hydromorphone HCl (Dilaudid) 0.25 mg IV Q10MIN PRN PRN Reason: Pain, Moderate (4-6) Stop: 07/07/16 13:42 Sodium Chloride (Nacl 0.9% 1000 Ml) 1,000 mls @ 42 mls/hr IV DIRECT MARA Last Admin: 07/05/16 09:36 Dose: 42 mls/hr Lactated Ringer's (Lactated Ringers) 1,000 mls @ 42 mls/hr IV DIRECT MARA Sodium Chloride (Nacl 0.45% 1000 Ml) 1,000 mls @ 75 mls/hr IV DIRECT MARA Morphine Sulfate (Morphine) 2 mg IV Q4H PRN PRN Reason: Pain, Moderate (4-6) Last Admin: 07/05/16 10:19 Dose: 2 mg Ondansetron HCl (Zofran) 4 mg IV Q4H PRN PRN Reason: N/V unrelieved by Reglan Review of Systems Constitutional: no weight loss, no weight gain, no fever, no chills Ears, nose, mouth and throat: no ear pain, no ear discharge, no tinnitis, no decreased hearing Cardiovascular: no chest pain, no orthopnea, no palpitations, no rapid/ irregular heart beat, no edema Respiratory: no cough, no cough with sputum, no excessive sputum Gastrointestinal: no nausea, no vomiting, no diarrhea Genitourinary Male: no hematuria, no flank pain, no discharge Musculoskeletal: muscle weakness Integumentary: deferred, wounds, no rash, no pruritis, no redness Neurological: no head injury, no transient paralysis, no paralysis, no weakness , no parathesias Psychiatric: no anxiety, no memory loss, no change in sleep habits, no sleep disturbances Endocrine: no cold intolerance, no heat intolerance, no polyphagia Hematologic/Lymphatic: no easy bruising, no easy bleeding Allergic/Immunologic: no urticaria, no allergic rhinitis Exam - Constitutional Vitals: Temp Pulse Resp BP Pulse Ox 98.4 F 89 20 162/75 96 07/05/16 07:20 07/05/16 07:20 07/05/16 10:23 07/05/16 07:20 07/05/16 07:20 General appearance: Present: no acute distress - EENT Eyes: Present: PERRL, EOM intact ENT: hearing intact, clear oral mucosa - Neck Neck: Present: supple, normal ROM - Respiratory Respiratory effort: normal - Cardiovascular Heart Sounds: Present: S1 & S2. Absent: rub, click - Extremities Extremities: pulses symmetrical, No edema Peripheral Pulses: within normal limits - Abdominal General gastrointestinal: Present: soft, non-tender, hernia (right inguinal hernia repair ) Male genitourinary: Present: deferred - Rectal Rectal Exam: deferred - Integumentary Integumentary: Present: clear, warm, dry - Musculoskeletal Musculoskeletal: strength equal bilaterally - Psychiatric Psychiatric: appropriate mood/affect, intact judgment & insight - Neurologic Neurologic: CNII-XII intact, moves all extremities Results - Labs CBC & Chem 7: 07/05/16 07:05 07/05/16 07:05 Labs: Laboratory Last Values WBC 7.2 K/mm3 (4.5-11.0) 07/05/16 07:05 RBC 3.61 M/mm3 (3.65-5.03) L 07/05/16 07:05 Hgb 11.3 gm/dl (11.8-15.2) L 07/05/16 07:05 Hct 34.9 % (35.5-45.6) L 07/05/16 07:05 MCV 97 fl (84-94) H 07/05/16 07:05 MCH 31 pg (28-32) 07/05/16 07:05 MCHC 32 % (32-34) 07/05/16 07:05 RDW 18.2 % (13.2-15.2) H 07/05/16 07:05 Plt Count 151 K/mm3 (140-440) 07/05/16 07:05 Lymph % (Auto) 20.9 % (13.4-35.0) 07/05/16 07:05 [place] % (Auto) 6.8 % (0.0-7.3) 07/05/16 07:05 Eos % (Auto) 2.2 % (0.0-4.3) 07/05/16 07:05 Baso % (Auto) 0.1 % (0.0-1.8) 07/05/16 07:05 Lymph # 1.5 K/mm3 (1.2-5.4) 07/05/16 07:05 [place] # 0.5 K/mm3 (0.0-0.8) 07/05/16 07:05 Eos # 0.2 K/mm3 (0.0-0.4) 07/05/16 07:05 Baso # 0.0 K/mm3 (0.0-0.1) 07/05/16 07:05 Seg Neutrophils % 70.0 % (40.0-70.0) 07/05/16 07:05 Seg Neutrophils # 5.1 K/mm3 (1.8-7.7) 07/05/16 07:05 Sodium 139 mmol/L (137-145) 07/05/16 07:05 Potassium 3.9 mmol/L (3.6-5.0) 07/05/16 07:05 Chloride 99.6 mmol/L (98-107) 07/05/16 07:05 Carbon Dioxide 21 mmol/L (22-30) L 07/05/16 07:05 Anion Gap 22 mmol/L 07/05/16 07:05 BUN 48 mg/dL (9-20) H 07/05/16 07:05 Creatinine 8.7 mg/dL (0.8-1.5) H 07/05/16 07:05 Estimated GFR 7 ml/min 07/05/16 07:05 BUN/Creatinine Ratio 5.51 % 07/05/16 07:05 Glucose 78 mg/dL (75-100) 07/05/16 07:05 POC Glucose 130 (70-105) H 07/04/16 21:46 Calcium 8.2 mg/dL (8.4-10.2) L 07/05/16 07:05 Assessment and Plan Assessment and plan: ASSESSMENT/PLAN 1. S/P Open Right Inguinal hernia with Mesh Patient admitted to 2B G01 for postoperative observation Monitor Ins /out's , patient on dialysis Pain controlled with Morphine IVF with Physical therapy to ambulated and exercises 2. End-stage Renal Disease Patient goes to dialysis MWF Renal diet as tolerated consulted Nephorology 3. Diabete Mellitus Accu-Chek/Ac and HS sliding scale Insulin/Novolog 4. Hypertension we will continue home medication DVT/GI Prophylaxis /Pepcid. No Heparin/Lovenox because of recent surgery only SCD's
[2016-07-05] MEDS ORDERED: PHENERGAN PO PRN (10:37)
[2016-07-05] MEDS ORDERED: D50W (25GM) IV PRN (10:45)
[2016-07-05] MEDS ORDERED: COUMADIN PO SCH (11:00)
--- NOTE | 2016-07-05 11:17 | Progress Note ---
Assessment and Plan POD # 1 Pt feeling well. op site clean & dry. scrotum -edema surgically stable solid renal diet awaiting renal eval for possible dialysis. hospitalist eval appreciated. ambulate as paul Selected Entries 07/05/16 07/05/16 07:20 10:23 Temperature 98.4 F Pulse Rate [ 89 Right] Respiratory 20 Rate [Right Lower Abdomen] Blood Pressure 162/75 [Right Arm] Laboratory Tests 07/05/16 07/05/16 07:05 07:05 WBC 7.2 Hgb 11.3 L Hct 34.9 L Sodium 139 Potassium 3.9 Chloride 99.6 Carbon Dioxide 21 L BUN 48 H Creatinine 8.7 H Objective Vital Signs - 12hr 07/05/16 07/05/16 07/05/16 02:15 07:20 09:33 Temperature 98 F 98.4 F Pulse Rate [ 69 89 Right] Respiratory 16 20 20 Rate Respiratory Rate [Right Lower Abdomen] Blood Pressure 148/64 162/75 [Right Arm] O2 Sat by Pulse 98 96 Oximetry 07/05/16 07/05/16 07/05/16 10:00 10:19 10:23 Temperature Pulse Rate [ Right] Respiratory 20 Rate Respiratory 20 Rate [Right Lower Abdomen] Blood Pressure [Right Arm] O2 Sat by Pulse 96 Oximetry - Labs 07/05/16 07:05 07/05/16 07:05 Diabetes panel 07/04/16 07/05/16 Range/Units 14:20 07:05 Sodium 139 (137-145) mmol/L Potassium 3.4 L 3.9 (3.6-5.0) mmol/L Chloride 99.6 (98-107) mmol/L Carbon Dioxide 21 L (22-30) mmol/L BUN 48 H (9-20) mg/dL Creatinine 8.7 H (0.8-1.5) mg/dL Glucose 78 (75-100) mg/dL Calcium 8.2 L (8.4-10.2) mg/dL Calcium panel 07/05/16 Range/Units 07:05 Calcium 8.2 L (8.4-10.2) mg/dL Pituitary panel 07/04/16 07/05/16 Range/Units 14:20 07:05 Sodium 139 (137-145) mmol/L Potassium 3.4 L 3.9 (3.6-5.0) mmol/L Chloride 99.6 (98-107) mmol/L Carbon Dioxide 21 L (22-30) mmol/L BUN 48 H (9-20) mg/dL Creatinine 8.7 H (0.8-1.5) mg/dL Glucose 78 (75-100) mg/dL Calcium 8.2 L (8.4-10.2) mg/dL Adrenal panel 07/04/16 07/05/16 Range/Units 14:20 07:05 Sodium 139 (137-145) mmol/L Potassium 3.4 L 3.9 (3.6-5.0) mmol/L Chloride 99.6 (98-107) mmol/L Carbon Dioxide 21 L (22-30) mmol/L BUN 48 H (9-20) mg/dL Creatinine 8.7 H (0.8-1.5) mg/dL Glucose 78 (75-100) mg/dL Calcium 8.2 L (8.4-10.2) mg/dL
--- NOTE | 2016-07-05 11:23 | Consultation ---
History of Present Illness - History of Present Illness Thank you for the consultation Patient was evaluated today assessment and plan End-stage renal disease patient is currently on maintenance hemodialysis will need to receive his hemodialysis during his hospital stay In the outpatient patient is currently being dialyzed on Thursday vested Thursday schedule , we will arrange for dialysis Currently his hemoglobin is 11.3 potassium 3.9 which is better than yesterday calcium is 8.2 Anemia in end-stage renal disease to monitor and follow Secondary hyperparathyroidism to follow Malnutrition risk is high please consider nutritional consultation in high protein diet preferably 1.5 g protein per KG body weight Patient has been admitted for right inguinal hernia repair Chronic wound of his hand being followed by surgery Multiple other comorbidities including diabetes, DVT, hyperparathyroidism, hyperlipidemia, peripheral vascular disease, stroke, A. fib We'll continue to follow and make recommendation from renal standpoint Past History Past Medical History: anemia, diabetes, DVT, ESRD, hyperthyroidism, hypertension , hyperlipidemia, PVD, renal failure, stroke, other (A-fib on cumadin) Past Surgical History: hernia repair Family history: CAD, hypertension, stroke Medications and Allergies Allergies Allergy/AdvReac Type Severity Reaction Status Date / Time No Known Allergies Allergy Verified 11/30/15 00:22 Home Medications Medication Instructions Recorded Confirmed Last Taken Type Cilostazol [Pletal] 100 mg PO BID #60 tablet 06/07/14 06/26/16 03/23/16 Rx Simvastatin [Zocor TAB] 40 mg PO QHS #30 tablet 12/06/15 06/26/16 03/23/16 Rx Aspirin [Aspirin TAB] 325 mg PO QDAY 03/11/16 06/26/16 03/21/16 History Carvedilol [Coreg] 25 mg PO BID 03/11/16 06/26/16 03/25/16 History Insulin Glargine,Hum.rec.anlog 20 units SQ QHS 03/11/16 06/26/16 03/23/16 History [Lantus Solostar] Insulin Glulisine [Apidra] 0 units SQ AC 03/11/16 06/26/16 03/23/16 History Lactulose 10 gm PO QDAY 03/11/16 06/26/16 Unknown History Promethazine [Phenergan TAB] 25 mg PO Q6HR PRN 03/11/16 06/26/16 Unknown History Sennosides [Senna] 2 tab PO QDAY 03/11/16 06/26/16 03/23/16 History Warfarin [Coumadin] 5 mg PO QDAY 03/11/16 06/26/16 03/21/16 History Sevelamer Carbonate [Renvela] 800 mg PO TIDWM 03/31/16 06/26/16 Unknown History Torsemide [Demadex] 20 mg PO BID 03/31/16 06/26/16 Unknown History Active Meds: Active Medications Acetaminophen/Hydrocodone Bitart ([place] 5/325) 2 each PO Q6H PRN PRN Reason: Pain, Moderate (4-6) Last Admin: 07/05/16 09:33 Dose: 2 each Aspirin (Aspirin) 325 mg PO QDAY MARA Cilostazol (Pletal) 100 mg PO BID MARA Dextrose (D50w (25gm)) 50 ml IV PRN PRN PRN Reason: Hypoglycemia Docusate Sodium (Colace) 100 mg PO QDAY MARA Famotidine (Pepcid) 20 mg PO PREOP NR Stop: 07/05/16 13:59 Last Admin: 07/04/16 15:03 Dose: 20 mg Fentanyl (Sublimaze) 50 mcg IV Q5MIN PRN PRN Reason: Pain , Severe (7-10) Stop: 07/07/16 13:42 Hydromorphone HCl (Dilaudid) 0.25 mg IV Q10MIN PRN PRN Reason: Pain, Moderate (4-6) Stop: 07/07/16 13:42 Sodium Chloride (Nacl 0.9% 1000 Ml) 1,000 mls @ 42 mls/hr IV DIRECT MARA Last Admin: 07/05/16 09:36 Dose: 42 mls/hr Lactated Ringer's (Lactated Ringers) 1,000 mls @ 42 mls/hr IV DIRECT MARA Sodium Chloride (Nacl 0.45% 1000 Ml) 1,000 mls @ 75 mls/hr IV DIRECT MARA Insulin Aspart (Novolog) 0 units SUB-Q AC MARA PRN Reason: Protocol Insulin Aspart (Novolog) 0 units SUB-Q QHS MARA PRN Reason: Protocol Insulin Detemir (Levemir) 20 units SUB-Q QHS MARA Morphine Sulfate (Morphine) 2 mg IV Q4H PRN PRN Reason: Pain, Moderate (4-6) Last Admin: 07/05/16 10:19 Dose: 2 mg Ondansetron HCl (Zofran) 4 mg IV Q4H PRN PRN Reason: N/V unrelieved by Regramonita Promethazine HCl (Phenergan) 25 mg PO Q6HR PRN PRN Reason: Nausea Senna (Senokot) 8.6 mg PO QDAY MARA Sevelamer Carbonate (Renvela) 800 mg PO TIDWM MARA Torsemide (Demadex) 20 mg PO BID@0600,1800 MARA Warfarin Sodium (Coumadin) 5 mg PO QDAY MARA PRN Reason: Protocol Exam - Vital Signs Vital signs: Vital Signs Temp Pulse Resp BP Pulse Ox 97.8 F 79 16 127/70 98 07/04/16 13:25 07/04/16 13:25 07/04/16 13:25 07/04/16 13:25 07/04/16 13:25 Results - Lab Results 07/05/16 07:05 07/05/16 07:05 Most recent lab results Calcium 8.2 mg/dL (8.4-10.2) L 07/05/16 07:05
[2016-07-05] MEDS ORDERED: NACL 0.9% 100 ML IV PRN (11:28)
[2016-07-05] MEDS: NOVOLOG SUB-Q SCH ×2 (11:30→16:30)
[2016-07-05 13:20] LABS: INR 1.32 (0.87-1.13)
[2016-07-05] MEDS ORDERED: NACL 0.9 (PRIMING MACHINE ONLY DIALYSIS) MC ONE (16:25)
[2016-07-05] MEDS ORDERED: HEPARIN IV PRN (16:46)
[2016-07-05] MEDS: RENVELA PO SCH (17:00)
[2016-07-05] MEDS: SENOKOT PO SCH (18:00)
[2016-07-05] MEDS: COLACE PO SCH (18:00)
[2016-07-05] MEDS: ASPIRIN PO SCH (18:00)
[2016-07-05] MEDS: DEMADEX PO SCH (18:00)
[2016-07-05] MEDS ORDERED: LEVEMIR SUB-Q SCH (22:00)
[2016-07-05] MEDS ORDERED: NOVOLOG SUB-Q SCH (22:00)
[2016-07-06] MEDS: PLETAL PO SCH ×2 (00:30→10:34)
[2016-07-06] MEDS: DEMADEX PO SCH ×2 (00:41→06:31)
[2016-07-06] MEDS: RENVELA PO SCH ×3 (00:41→15:27)
[2016-07-06] MEDS: MORPHINE IV PRN (04:11)
[2016-07-06 05:12] LABS: INR 1.44 (0.87-1.13)
[2016-07-06 06:36] VITALS: BP 138/64
--- NOTE | 2016-07-06 09:03 | Progress Note ---
Subjective Interval history: Not seen delete this note Objective - Vital Signs Vital signs: Vital Signs - 12hr 07/05/16 07/06/16 07/06/16 22:00 00:00 06:33 Temperature 99.5 F 99.0 F Pulse Rate [ 81 89 84 Right] Respiratory 18 18 Rate Blood Pressure 145/69 138/64 [Right Arm] O2 Sat by Pulse 98 97 100 Oximetry - Lab 07/05/16 07:05 07/05/16 07:05 Most recent lab results Calcium 8.2 mg/dL (8.4-10.2) L 07/05/16 07:05
--- NOTE | 2016-07-06 09:29 | History and Physical Report ---
History of Present Illness Date of examination: 07/06/16 Date of admission: 07/04/16 18:18 Chief complaint: Right inguinal hernia repair History of present illness: Patient is 76 years old with Hx of HTN, CHF, Diabetes, PVD, Hyperlipidemia,ESRD , CVA with LE weakness. Patient has had right Inguinal hernia repair,This procedure occurred 07/04/2016. Patient tolerated the procedure well and Post- operatively he is stable. Patient denies fever or chills. Patient denies having pain at present time. Patient have dialysis on .W. Past History Past Medical History: anemia, diabetes, DVT, ESRD, hyperthyroidism, hypertension , hyperlipidemia, PVD, renal failure, stroke, other (A-fib on cumadin) Past Surgical History: hernia repair Family history: CAD, hypertension, stroke Medications and Allergies Allergies Allergy/AdvReac Type Severity Reaction Status Date / Time No Known Allergies Allergy Verified 11/30/15 00:22 Home Medications Medication Instructions Recorded Confirmed Last Taken Type Cilostazol [Pletal] 100 mg PO BID #60 tablet 06/07/14 06/26/16 03/23/16 Rx Simvastatin [Zocor TAB] 40 mg PO QHS #30 tablet 12/06/15 06/26/16 03/23/16 Rx Aspirin [Aspirin TAB] 325 mg PO QDAY 03/11/16 06/26/16 03/21/16 History Carvedilol [Coreg] 25 mg PO BID 03/11/16 06/26/16 03/25/16 History Insulin Glargine,Hum.rec.anlog 20 units SQ QHS 03/11/16 06/26/16 03/23/16 History [Lantus Solostar] Insulin Glulisine [Apidra] 0 units SQ AC 03/11/16 06/26/16 03/23/16 History Lactulose 10 gm PO QDAY 03/11/16 06/26/16 Unknown History Promethazine [Phenergan TAB] 25 mg PO Q6HR PRN 03/11/16 06/26/16 Unknown History Sennosides [Senna] 2 tab PO QDAY 03/11/16 06/26/16 03/23/16 History Warfarin [Coumadin] 5 mg PO QDAY 03/11/16 06/26/16 03/21/16 History Sevelamer Carbonate [Renvela] 800 mg PO TIDWM 03/31/16 06/26/16 Unknown History Torsemide [Demadex] 20 mg PO BID 03/31/16 06/26/16 Unknown History Active Meds: Active Medications Acetaminophen/Hydrocodone Bitart (Childs 5/325) 2 each PO Q6H PRN PRN Reason: Pain, Moderate (4-6) Last Admin: 07/05/16 09:33 Dose: 2 each Aspirin (Aspirin) 325 mg PO QDAY [facility] Last Admin: 07/05/16 18:00 Dose: Not Given Cilostazol (Pletal) 100 mg PO BID [facility] Last Admin: 07/06/16 00:30 Dose: 100 mg Dextrose (D50w (25gm)) 50 ml IV PRN PRN PRN Reason: Hypoglycemia Docusate Sodium (Colace) 100 mg PO QDAY [facility] Last Admin: 07/05/16 18:00 Dose: Not Given Fentanyl (Sublimaze) 50 mcg IV Q5MIN PRN PRN Reason: Pain , Severe (7-10) Stop: 07/07/16 13:42 Heparin Sodium (Porcine) (Heparin) 5,000 unit IV HAYDEE PRN PRN Reason: hemodialysis Last Admin: 07/05/16 19:13 Dose: 5,000 unit Hydromorphone HCl (Dilaudid) 0.25 mg IV Q10MIN PRN PRN Reason: Pain, Moderate (4-6) Stop: 07/07/16 13:42 Sodium Chloride (Nacl 0.9% 1000 Ml) 1,000 mls @ 42 mls/hr IV DIRECT MARA Last Admin: 07/05/16 09:36 Dose: 42 mls/hr Lactated Ringer's (Lactated Ringers) 1,000 mls @ 42 mls/hr IV DIRECT MARA Sodium Chloride (Nacl 0.45% 1000 Ml) 1,000 mls @ 75 mls/hr IV DIRECT MARA Sodium Chloride (Nacl 0.9%) 100 mls @ 999 mls/hr IV HAYDEE PRN PRN Reason: Hypotension Insulin Aspart (Novolog) 0 units SUB-Q AC MARA PRN Reason: Protocol Last Admin: 07/05/16 16:30 Dose: Not Given Insulin Aspart (Novolog) 0 units SUB-Q QHS MARA PRN Reason: Protocol Last Admin: 07/05/16 23:11 Dose: Not Given Insulin Detemir (Levemir) 20 units SUB-Q QHS [facility] Last Admin: 07/06/16 00:31 Dose: 20 units Morphine Sulfate (Morphine) 2 mg IV Q4H PRN PRN Reason: Pain, Moderate (4-6) Last Admin: 07/06/16 04:11 Dose: 2 mg Ondansetron HCl (Zofran) 4 mg IV Q4H PRN PRN Reason: N/V unrelieved by Reglan Promethazine HCl (Phenergan) 25 mg PO Q6HR PRN PRN Reason: Nausea Senna (Senokot) 8.6 mg PO QDAY [facility] Last Admin: 07/05/16 18:00 Dose: Not Given Sevelamer Carbonate (Renvela) 800 mg PO TIDWM [facility] Last Admin: 07/06/16 00:41 Dose: Not Given Torsemide (Demadex) 20 mg PO BID@0600,1800 [facility] Last Admin: 07/06/16 06:31 Dose: 20 mg Warfarin Sodium (Coumadin) 5 mg PO QDAY@1700 [facility] PRN Reason: Protocol Review of Systems Constitutional: no weight gain, no fever, no chills, no sweats Ears, nose, mouth and throat: no ear pain, no tinnitis, no nose pain Exam - Constitutional Vitals: Temp Pulse Resp BP Pulse Ox 99.0 F 84 18 138/64 100 07/06/16 06:33 07/06/16 06:33 07/06/16 06:33 07/06/16 06:33 07/06/16 06:33 Results - Labs CBC & Chem 7: 07/05/16 07:05 07/05/16 07:05 Labs: Laboratory Last Values WBC 7.2 K/mm3 (4.5-11.0) 07/05/16 07:05 RBC 3.61 M/mm3 (3.65-5.03) L 07/05/16 07:05 Hgb 11.3 gm/dl (11.8-15.2) L 07/05/16 07:05 Hct 34.9 % (35.5-45.6) L 07/05/16 07:05 MCV 97 fl (84-94) H 07/05/16 07:05 MCH 31 pg (28-32) 07/05/16 07:05 MCHC 32 % (32-34) 07/05/16 07:05 RDW 18.2 % (13.2-15.2) H 07/05/16 07:05 Plt Count 151 K/mm3 (140-440) 07/05/16 07:05 Lymph % (Auto) 20.9 % (13.4-35.0) 07/05/16 07:05 Lucas % (Auto) 6.8 % (0.0-7.3) 07/05/16 07:05 Eos % (Auto) 2.2 % (0.0-4.3) 07/05/16 07:05 Baso % (Auto) 0.1 % (0.0-1.8) 07/05/16 07:05 Lymph # 1.5 K/mm3 (1.2-5.4) 07/05/16 07:05 Lucas # 0.5 K/mm3 (0.0-0.8) 07/05/16 07:05 Eos # 0.2 K/mm3 (0.0-0.4) 07/05/16 07:05 Baso # 0.0 K/mm3 (0.0-0.1) 07/05/16 07:05 Seg Neutrophils % 70.0 % (40.0-70.0) 07/05/16 07:05 Seg Neutrophils # 5.1 K/mm3 (1.8-7.7) 07/05/16 07:05 PT 17.5 Sec. (12.2-14.9) H 07/06/16 04:44 INR 1.44 (0.87-1.13) H 07/06/16 04:44 Sodium 139 mmol/L (137-145) 07/05/16 07:05 Potassium 3.9 mmol/L (3.6-5.0) 07/05/16 07:05 Chloride 99.6 mmol/L (98-107) 07/05/16 07:05 Carbon Dioxide 21 mmol/L (22-30) L 07/05/16 07:05 Anion Gap 22 mmol/L 07/05/16 07:05 BUN 48 mg/dL (9-20) H 07/05/16 07:05 Creatinine 8.7 mg/dL (0.8-1.5) H 07/05/16 07:05 Estimated GFR 7 ml/min 07/05/16 07:05 BUN/Creatinine Ratio 5.51 % 07/05/16 07:05 Glucose 78 mg/dL (75-100) 07/05/16 07:05 POC Glucose 48 (70-105) L 07/06/16 09:03 Calcium 8.2 mg/dL (8.4-10.2) L 07/05/16 07:05
--- NOTE | 2016-07-06 09:34 | Progress Note ---
Assessment and Plan Assessment and plan: ASSESSMENT/PLAN 1. S/P Open Right Inguinal hernia with Mesh Monitor Ins /out's , patient on dialysis Pain controlled with Morphine Physical therapy consulted Patient ambulated on his own and tolerated well. 2. End-stage Renal Disease Patient goes to dialysis MWF Renal diet as tolerated consulted Nephorology 3. Diabete Mellitus Accu-Chek/Ac and HS sliding scale Insulin/Novolog Blood glucose controlled 4. Hypertension Patient on home Blood Pressure medicine BP within normal limit DVT/GI Prophylaxis /Pepcid. No Heparin/Lovenox because of recent surgery only SCD's History Interval history: Patient S/P Open Right Inguinal hernia with Mesh. Post.operatively stable and doing well. He denies fever or chills. Patient verbalized that he will be up for all meals and walk twice today. Hospitalist Physical - Constitutional Vitals: Temp Pulse Resp BP Pulse Ox 99.0 F 84 18 138/64 100 07/06/16 06:33 07/06/16 06:33 07/06/16 06:33 07/06/16 06:33 07/06/16 06:33 General appearance: Present: no acute distress - EENT Eyes: Present: PERRL, EOM intact ENT: hearing intact, clear oral mucosa, dentition normal - Neck Neck: Present: normal ROM - Respiratory Respiratory effort: normal - Cardiovascular Heart Sounds: Present: S1 & S2 - Extremities Extremities: no ischemia - Abdominal General gastrointestinal: tender (RLQ) Localized gastrointestinal: tender: RLQ - Integumentary Integumentary: Present: clear, warm, dry - Psychiatric Psychiatric: appropriate mood/affect - Neurologic Neurologic: CNII-XII intact Results - Labs CBC & Chem 7: 07/05/16 07:05 07/05/16 07:05 Labs: Laboratory Last Values WBC 7.2 K/mm3 (4.5-11.0) 07/05/16 07:05 RBC 3.61 M/mm3 (3.65-5.03) L 07/05/16 07:05 Hgb 11.3 gm/dl (11.8-15.2) L 07/05/16 07:05 Hct 34.9 % (35.5-45.6) L 07/05/16 07:05 MCV 97 fl (84-94) H 07/05/16 07:05 MCH 31 pg (28-32) 07/05/16 07:05 MCHC 32 % (32-34) 07/05/16 07:05 RDW 18.2 % (13.2-15.2) H 07/05/16 07:05 Plt Count 151 K/mm3 (140-440) 07/05/16 07:05 Lymph % (Auto) 20.9 % (13.4-35.0) 07/05/16 07:05 Levy % (Auto) 6.8 % (0.0-7.3) 07/05/16 07:05 Eos % (Auto) 2.2 % (0.0-4.3) 07/05/16 07:05 Baso % (Auto) 0.1 % (0.0-1.8) 07/05/16 07:05 Lymph # 1.5 K/mm3 (1.2-5.4) 07/05/16 07:05 Levy # 0.5 K/mm3 (0.0-0.8) 07/05/16 07:05 Eos # 0.2 K/mm3 (0.0-0.4) 07/05/16 07:05 Baso # 0.0 K/mm3 (0.0-0.1) 07/05/16 07:05 Seg Neutrophils % 70.0 % (40.0-70.0) 07/05/16 07:05 Seg Neutrophils # 5.1 K/mm3 (1.8-7.7) 07/05/16 07:05 PT 17.5 Sec. (12.2-14.9) H 07/06/16 04:44 INR 1.44 (0.87-1.13) H 07/06/16 04:44 Sodium 139 mmol/L (137-145) 07/05/16 07:05 Potassium 3.9 mmol/L (3.6-5.0) 07/05/16 07:05 Chloride 99.6 mmol/L (98-107) 07/05/16 07:05 Carbon Dioxide 21 mmol/L (22-30) L 07/05/16 07:05 Anion Gap 22 mmol/L 07/05/16 07:05 BUN 48 mg/dL (9-20) H 07/05/16 07:05 Creatinine 8.7 mg/dL (0.8-1.5) H 07/05/16 07:05 Estimated GFR 7 ml/min 07/05/16 07:05 BUN/Creatinine Ratio 5.51 % 07/05/16 07:05 Glucose 78 mg/dL (75-100) 07/05/16 07:05 POC Glucose 48 (70-105) L 07/06/16 09:03 Calcium 8.2 mg/dL (8.4-10.2) L 07/05/16 07:05
[2016-07-06] MEDS: NORCO 5/325 PO PRN (10:33)
[2016-07-06] MEDS: SENOKOT PO SCH (10:34)
[2016-07-06] MEDS: COLACE PO SCH (10:34)
[2016-07-06] MEDS: ASPIRIN PO SCH (10:34)
--- NOTE | 2016-07-06 10:38 | Discharge Summary ---
Providers - Providers Date of Admission: 07/04/16 18:18 Date of discharge: 07/06/16 Attending physician: ANJALI ABDUL 07/04/16 18:23 Consult to Physician [CONS] Routine Consulting Provider: ANTHONY ABBASI Reason For Exam: medical management Place consult to:: dr. powers Notified:: dr. powers 07/04/16 18:32 Consult to Physician [CONS] Routine Consulting Provider: NOAM JONES Reason For Exam: ESRD Place consult to:: dr. jones Notified:: yes 07/05/16 11:02 Consult to Physician [CONS] Routine Consulting Provider: NOAM JONES Reason For Exam: ESRD Place consult to:: dr. jones Notified:: yes 07/05/16 12:04 Occupational Therapy Evaluate and Treat [CONS] Routine Comment: Reason For Exam: CVA Physical Therapy Evaluation and Treat [CONS] Routine Comment: Reason For Exam: CVA 07/05/16 13:24 Consult to Case Management [CONS] Routine Services Needed at Discharge: Injection Mold Technician Notified:: case management Additional Physician Instructions: [facility] Primary care physician: EL MAYERS Hospitalization Condition: Good Procedures: None Disposition: DISCHARGED TO HOME OR SELFCARE Exam - Constitutional Vitals: Temp Pulse Resp BP Pulse Ox 99.0 F 84 20 138/64 100 07/06/16 06:33 07/06/16 06:33 07/06/16 10:33 07/06/16 06:33 07/06/16 06:33 Plan Follow up with: EL MAYERS MD [Primary Care Provider] - 7 Days Forms: Warfarin Discharge Instruction
--- NOTE | 2016-07-06 11:22 | Progress Note ---
Assessment and Plan POD # 2 Pt feeling well. paul diet Op site clean & dry surgically stable may d/c if medically cleared. rto next wed Selected Entries 07/06/16 07/06/16 06:33 10:33 Temperature 99.0 F Respiratory 20 Rate Blood Pressure 138/64 [Right Arm] Objective Vital Signs - 12hr 07/06/16 07/06/16 07/06/16 00:00 06:33 10:33 Temperature 99.5 F 99.0 F Pulse Rate [ 89 84 Right] Respiratory 18 18 20 Rate Blood Pressure 145/69 138/64 [Right Arm] O2 Sat by Pulse 97 100 Oximetry - Labs 07/05/16 07:05 07/05/16 07:05
--- NOTE | 2016-07-06 11:25 | Discharge Summary ---
Short Stay Discharge Plan Activity: other (june d/c today if medically cleared. no lifting over 5 lbs x 3 wks. scrotal support x 3 days) Weight Bearing Status: Non-Weight Bearing Diet: other (renal diet) Wound: keep clean and dry (x 5 days) Additional Instructions: surfak stool softner 1 po q am x 5 Follow up with: ANJALI ABDUL MD [Staff Physician] - 07/16/16 Forms: Warfarin Discharge Instruction
[2016-07-06] MEDS ORDERED: COUMADIN PO SCH (17:00)
== END 2016-07-06 16:25 ==
LOC: OR 12:48 → 2B-SURG 18:18
PROVIDERS: ADMIT Surgery; ATTEND Surgery
DX: K40.90 Unilateral inguinal hernia, without obstruction or gangrene, not specified as recurrent (principal); E11.22 Type 2 diabetes mellitus with diabetic chronic kidney disease; I12.0 Hypertensive chronic kidney disease with stage 5 chronic kidney disease or end stage renal disease; N18.6 End stage renal disease; E05.90 Thyrotoxicosis, unspecified without thyrotoxic crisis or storm; I25.10 Atherosclerotic heart disease of native coronary artery without angina pectoris; E78.5 Hyperlipidemia, unspecified; D64.9 Anemia, unspecified; Z86.73 Personal history of transient ischemic attack (TIA), and cerebral infarction without residual deficits; Z82.49 Family history of ischemic heart disease and other diseases of the circulatory system; Z82.3 Family history of stroke; Z99.2 Dependence on renal dialysis
CPT/HCPCS: 36415; 49505; 80048; 82962; 84132; 85025; 85610; 96365; 96372; 96375; 96376; 97167; 97530; C1781; G0378; G8987; G8988; G8989; J0690; J1170; J1644; J2270; J2405; J2704; J2710; J7030; J7120; J1818

== ENCOUNTER 2017-04-10 06:25 | Day surgery (SDC) | payer MEDICARE ==
[~2017-04-10 06:25] MED LIST changes: +ANCEF/STERILE WATER 2 GM/20 ML 2 GM/20 ML SYRINGE IV NR; +NACL 0.9% 1000 ML 1,000 ML IV SCH; -ceFAZolin 2 GM in NACL 0.9% 100 ML IV ONE
[2017-04-10 08:25] LABS: Basophils % (Auto) 0.2 % (0.0-1.8); Eosinophils # (Auto) 0.2 K/mm3 (0.0-0.4); Eosinophils % (Auto) 3.3 % (0.0-4.3); Hematocrit 29.3 % (35.5-45.6); Hemoglobin 9.3 gm/dl (11.8-15.2); Mean Corpuscular HGB Conc 32 % (32-34); Mean Corpuscular Hemoglobin 30 pg (28-32); Mean Corpuscular Volume 95 fl (84-94); Monocytes # (Auto) 0.7 K/mm3 (0.0-0.8); Monocytes % (Auto) 13.1 % (0.0-7.3); Platelet Count 147 K/mm3 (140-440); Red Cell Distribution Width 16.2 % (13.2-15.2)
[2017-04-10 08:34] LABS: INR 1.09 (0.87-1.13)
[2017-04-10 08:35] LABS: Partial Thromboplastin Time 38.4 Sec. (24.2-36.6)
[2017-04-10 08:40] LABS: Calcium 8.2 mg/dL (8.4-10.2)
[2017-04-10] MEDS ORDERED: HEPARIN/NS 5000 UNIT/500ML(CATH LAB) 1,000 ML IR ONE (10:41)
[2017-04-10] MEDS ORDERED: ANCEF/STERILE WATER 2 GM/20 ML 2 GM/20 ML SYRINGE IV ONE (10:42)
[2017-04-10] MEDS ORDERED: XYLOCAINE 2% INFILTRATI ONE (10:42)
[2017-04-10] MEDS ORDERED: NACL 0.9% 100 ML ONE (11:07)
[2017-04-10] MEDS ORDERED: XYLOCAINE 1%/ EPI 1:100,000 INFILTRATI ONE (11:10)
[2017-04-10] MEDS: VERSED ONE ×2 (11:18→12:11)
[2017-04-10] MEDS: SUBLIMAZE ONE ×3 (11:18→12:43)
[2017-04-10] MEDS: HEPARIN 10,000 UNITS/10 ML ONE ×3 (11:36→12:34)
[2017-04-10] MEDS ORDERED: NACL 0.9% 500 ML 500 ML ONE ×3 (12:03→12:10)
[2017-04-10] MEDS ORDERED: CALAN ONE (12:04)
[2017-04-10] MEDS ORDERED: TRIDIL DRIP 50MG/250ML 50 MG/250 ML BOTTLE ONE (12:04)
[2017-04-10] MEDS ORDERED: HEPARIN/NS 5000 UNIT/500ML(CATH LAB) 500 ML IR ONE ×2 (12:22→12:23)
[2017-04-10] MEDS ORDERED: VERSED ONE (12:45)
--- NOTE | 2017-04-10 14:28 | Operative Report ---
Operative Report Operative Report: EXAM: 1. Ultrasound guided access of the right common femoral artery 2. Selection of the abdominal aorta above the renal arteries with aortography 3. Angiography with right lower extremity angiography 4. Selection of the left external iliac artery, superficial femoral artery, and popliteal artery with angiography 5. Selection of the peroneal artery with angiography 6. Atherectomy of the tibioperoneal trunk and proximal peroneal artery with a 1.25 micron CSI atherectomy device 7. Angioplasty of the left tibioperoneal trunk and proximal peroneal artery with a 2-2.5 mm angioplasty balloon 8. Selection of the posterior tibial artery 9. Angioplasty of the left posterior tibial artery with a 2.5 mm angioplasty balloon 10. Angioplasty of the left tibioperoneal trunk with a 3.5 mm angioplasty balloon 11. Selection of the left anterior tibial artery with angiography 12. Closure of the right common femoral artery with a 6 Fr angioseal DATE: 04/10/17 CURRICULUM DEVELOPMENT COORDINATOR: VARGAS DIXON MD INDICATION: Left lower extremity gangrene with critical limb ischemia and nonpalpable pedal pulses MEDICATIONS: Please see nursing report for full details. DEVICES: 1.25 micron CSI atherectomy device 2-2.5 mm angioplasty balloon 2.5 mm angioplasty balloon 3.5 mm angioplasty balloon CONTRAST: Please see laboratory technical specialist report for full details PROCEDURE: The risks, benefits, and alternatives were discussed with the patient and his sister; written informed consent was obtained. The patient was brought to the angiography suite and prepped and draped in a sterile fashion. Both groins were prepped and draped in a sterile fashion. Under ultrasound guidance, the right common femoral artery was evaluated and was patent. Under direct ultrasound guidance, the right common femoral artery was accessed with a 21-gauge micropuncture needle. 0.018 inch wire was passed through the needle into the aorta. Needle was exchanged for a transitional dilator. Wire was exchanged for 0.035 inch wire. Transitional dilator was exchanged for a 5 Spanish sheath. Digital subtraction angiography was performed demonstrating an appropriate puncture, above the bifurcation and below the inferior epigastric artery. The right external iliac artery, common femoral artery, and proximal portion of the profunda and superficial femoral artery were patent. Catheter was exchanged for a flush catheter and positioned in the abdominal aorta. Digital subtraction angiography was performed demonstrating patency of the proximal renal arteries which then became more diminutive at the mid and distal portions compatible with known end-stage renal disease. The abdominal aorta had mild less than 20% narrowing. The bilateral common iliac arteries were patent. The bilateral internal iliac arteries were patent. The bilateral external iliac arteries were patent. The left external iliac artery was selected and digital subtraction angiography demonstrated patency of the left common femoral artery, proximal superficial femoral artery, and profunda femoral artery. Catheter was exchanged for an angled catheter and the left superficial femoral artery was selected. Digital subtraction angiography demonstrated patency of the proximal and mid portions of the superficial femoral artery with less than 10% narrowing of the distal portion of the left superficial femoral artery the above the knee popliteal artery had a focal 40% narrowing. The mid portion of the popliteal artery was patent and the below the knee popliteal artery had a 20 -30% narrowing within it. There was no runoff below the popliteal artery. The patient was heparinized. I attempted to exchange the sheath over the existing wire, but the sheath buckled into the abdominal aorta. The wire had to be exchanged for Paulino wire. 6 Spanish 90 cm he was then passed into the left popliteal artery. Digital subtraction angiography demonstrated occlusion of the tibioperoneal trunk with reconstitution of the distal portion of the tibioperoneal trunk. The peroneal artery had multifocal 50% narrowing within the proximal portions of the vessel. The posterior tibial artery had a focal 50% narrowing near its ostium. The midportion of the posterior tibial artery was occluded. There was good distal reconstitution of the posterior tibial artery. The mid and distal portions of the peroneal artery were patent and provided flow into a robust collateral network through the anterior communicating artery into the dorsalis pedis. The anterior tibial artery was occluded approximately 10 cm afterwards takeoff. There is reconstitution of the anterior tibial artery at its distal portion possibly secondary to retrograde flow from the anterior communicating flow from the peroneal artery. There is flow into the dorsalis pedis. The posterior tibial artery terminated into plantar arteries which were stenotic with 60% to 70% narrowing within them. Wires and catheters were used and the tibioperoneal trunk occlusion was crossed. Digital subtraction angiography was performed confirming intraluminal positioning. ViperWire was passed into the peroneal artery and subsequently CSI atherectomy was performed of the tibioperoneal trunk and proximal peroneal artery. 2-2.5 mm angioplasty balloon was used to perform angioplasty of the entirety of the tibioperoneal artery with 2 mm at the distal portion of the vessel and 2.5 mm at the mid and proximal portions of the vessel. I then selected the posterior tibial artery using a maggy wire within the peroneal artery. The mid occlusion within the posterior tibial artery could not be easily crossed and despite multiple attempts at could not cross the occlusion within the mid posterior tibial artery. I left a wire in the posterior tibial artery, and after angioplasty of the peroneal artery, I used a 2.5 mm angioplasty balloon to angioplasty the posterior tibial artery ostium. Digital subtraction angiography was performed demonstrating residual narrowing in the tibioperoneal trunk greater than 50% with less than 10% residual narrowing in the rest of the peroneal artery. 3.5 mm angioplasty balloon was then used to perform angioplasty of the tibioperoneal trunk and slightly into the peroneal artery off. Digital subtraction angiography demonstrated a tiny proximal dissection within the tibioperoneal trunk which was not flow-limiting with a much greater luminal gain. 2.5 mm angioplasty balloon was then used to perform angioplasty again in the posterior tibial artery in order to prevent ostial narrowing. I then tried to recanalize the anterior tibial artery. I selected the anterior tibial artery, but could not passed through the occlusion due to numerous collaterals. There is a trace amount of extravasation. Blood pressure cuff was inflated in the proximal calf for 5 minutes and the extravasation resolved. I re-selected the peroneal artery through the tibioperoneal trunk due to noticing slight recoil. 3.5 mm angioplasty advanced over the wire and inflated for 5 minutes. Digital subtraction angiography was then performed demonstrating near resolution of the trace dissection flap with resolution of the recoil previously noted. There is less than 10-20% residual narrowing in the tibioperoneal trunk. At this point, all wires, catheters, and sheaths were retracted into the right external iliac artery. Sheath was exchanged for 6 Spanish Angio-Seal which was deployed achieving immediate hemostasis. Patient tolerated the procedure well. No immediate postprocedure complication. FINDINGS: Please see procedure note above. IMPRESSION: 1. Successful atherectomy and angioplasty of the left tibial peroneal trunk and peroneal artery. 2. Successful angioplasty of the left posterior tibial artery 3. Successful selection of the left anterior tibial artery Discussed with family that patient will return for puncture of the foot with antegrade access for reconstruction of the tibial arteries.
--- NOTE | 2017-04-10 14:28 | Short Stay Summary ---
Short Stay Documentation Date of service: 04/10/17 Narrative H&P: 77 year old male with ESRD and LLE CLI with gangrene - History H&P: obtained from office - Allergies and Medications Current Medications: Allergies No Known Allergies Allergy (Verified 11/30/15 00:22) Home Medications Medication Instructions Recorded Confirmed Last Taken Type Simvastatin [Zocor TAB] 40 mg PO QHS #30 tablet 12/06/15 04/10/17 04/09/17 Rx Aspirin [Aspirin TAB] 325 mg PO QDAY 03/11/16 04/10/17 04/09/17 History Carvedilol [Coreg] 25 mg PO BID 03/11/16 04/10/17 04/09/17 History Insulin Glargine,Hum.rec.anlog 20 units SQ QHS 03/11/16 04/10/17 04/09/17 History [Lantus Solostar] Lactulose 10 gm PO QDAY 03/11/16 04/10/17 04/09/17 History Active Medications Sodium Chloride (Nacl 0.9% 1000 Ml) 1,000 mls @ 42 mls/hr IV DIRECT MARA - Physical exam General appearance: no acute distress Lungs: Normal air movement Extremities: normal temperature, normal color, abnormal (gangrene with nonpalpable pedal pulses) - Brief post op/procedure progress note Date of procedure: 04/10/17 Pre-op diagnosis: CLI LLE Post-op diagnosis: same Procedure: revasc LLE Anesthesia: local (w/ conscious sedation) Surgeon: VARGAS DIXON Estimated blood loss: minimal Condition: stable - Hospital course Hospital course: Can be discharged in 2 hrs - Disposition Condition at discharge: Stable Disposition: DC-01 TO HOME OR SELFCARE - Discharge Diagnoses (1) Critical ischemia of lower extremity Status: Acute Short Stay Discharge Plan Activity: advance as tolerated Weight Bearing Status: Weight Bear as Tolerated Diet: renal Wound: keep clean and dry, other (1st and 3rd digit silver sulfadiazene; 2nd digit betadine ; gauze between toes ) Follow up with: EL MAYERS MD [Primary Care Provider] - 7 Days
[2017-04-10 15:06] VITALS: BP 133/64
--- NOTE | 2017-04-10 17:14 | Post Operative Note ---
Date of procedure: 04/10/17 Pre-op diagnosis: CLI left lower extremity Post-op diagnosis: same Procedure: 1. Ultrasound guided access of the right common femoral artery 2. Selection of the abdominal aorta 3. Aortography with right lower extremity angiography 4. Selection of the left external iliac artery, superficial femoral artery, and popliteal artery with angiography 5. Selection of the peroneal artery 6. Atherectomy of the tibioperoneal trunk and proximal peroneal artery with a 1.25 micron CSI atherectomy device 7. Angioplasty of the left tibioperoneal trunk and proximal peroneal artery with a 2-2.5 mm angioplasty balloon 8. Angioplasty of the left posterior tibial artery with a 2.5 mm angioplasty balloon 9. Angioplasty of the left tibioperoneal trunk with a 3.5 mm angioplasty balloon 10. Selection of the left anterior tibial artery with angiography 11. Closure of the right common femoral artery with a 6 Fr angioseal Anesthesia: local (w/ conscious sedation) Surgeon: VARGAS DIXON Estimated blood loss: minimal Condition: stable Disposition: floor
== END 2017-04-10 16:20 | disposition home or self-care (01) ==
LOC: CATHLABREC 06:25
PROVIDERS: ATTEND Radiology Diagnostic Radiology
DX: I70.262 Atherosclerosis of native arteries of extremities with gangrene, left leg (principal); M62.262 Nontraumatic ischemic infarction of muscle, left lower leg; E11.22 Type 2 diabetes mellitus with diabetic chronic kidney disease; I13.2 Hypertensive heart and chronic kidney disease with heart failure and with stage 5 chronic kidney disease, or end stage renal disease; I50.9 Heart failure, unspecified; N18.6 End stage renal disease; Z79.82 Long term (current) use of aspirin; Z79.899 Other long term (current) drug therapy; Z95.1 Presence of aortocoronary bypass graft; Z98.890 Other specified postprocedural states; Z86.73 Personal history of transient ischemic attack (TIA), and cerebral infarction without residual deficits; Z83.3 Family history of diabetes mellitus; Z79.02 Long term (current) use of antithrombotics/antiplatelets
CPT/HCPCS: 36415; 37229; 37232; 75710; 80048; 82962; 85025; 85610; 85730; 99156; 99157; C1724; C1725; C1760; C1769; C1887; C1894; J0690; J1644; J2250; J3010; J7040; Q9967

== ENCOUNTER 2017-04-16 08:48 | Day surgery (SDC) | payer MEDICARE ==
[2017-04-16 09:37] LABS: Basophils # (Auto) 0.1 K/mm3 (0.0-0.1); Basophils % (Auto) 0.9 % (0.0-1.8); Eosinophils # (Auto) 0.1 K/mm3 (0.0-0.4); Eosinophils % (Auto) 2.3 % (0.0-4.3); Hemoglobin 9.7 gm/dl (11.8-15.2); Lymphocytes # (Auto) 1.6 K/mm3 (1.2-5.4); Lymphocytes % (Auto) 26.6 % (13.4-35.0); Mean Corpuscular HGB Conc 31 % (32-34); Mean Corpuscular Hemoglobin 29 pg (28-32); Mean Corpuscular Volume 94 fl (84-94); Monocytes # (Auto) 0.7 K/mm3 (0.0-0.8); Monocytes % (Auto) 12.1 % (0.0-7.3); Platelet Count 184 K/mm3 (140-440); Red Blood Count 3.31 M/mm3 (3.65-5.03); Red Cell Distribution Width 16.3 % (13.2-15.2)
[2017-04-16 09:58] LABS: Calcium 8.6 mg/dL (8.4-10.2)
[2017-04-16] MEDS ORDERED: HEPARIN/NS 5000 UNIT/500ML(CATH LAB) 500 ML IR ONE (10:55)
[2017-04-16] MEDS ORDERED: HEPARIN 10,000 UNITS/10 ML ONE (10:55)
[2017-04-16] MEDS ORDERED: SUBLIMAZE ONE (10:56)
[2017-04-16] MEDS ORDERED: XYLOCAINE 2% INFILTRATI ONE (10:56)
[2017-04-16] MEDS ORDERED: ANCEF/STERILE WATER 2 GM/20 ML 0 GM/0 ML SYRINGE IV ONE (10:57)
[2017-04-16] MEDS ORDERED: NACL 0.9% 250ML 250 ML ONE (10:57)
[2017-04-16] MEDS: VERSED ONE ×2 (11:12→11:45)
[2017-04-16 12:59] VITALS: BP 160/61
== END 2017-04-16 13:20 ==
LOC: CATHLABREC 08:48
PROVIDERS: ATTEND Radiology Diagnostic Radiology
DX: T82.898A Other specified complication of vascular prosthetic devices, implants and grafts, initial encounter (principal); I13.2 Hypertensive heart and chronic kidney disease with heart failure and with stage 5 chronic kidney disease, or end stage renal disease; E11.22 Type 2 diabetes mellitus with diabetic chronic kidney disease; N18.6 End stage renal disease; I50.9 Heart failure, unspecified; E78.00 Pure hypercholesterolemia, unspecified; Z79.82 Long term (current) use of aspirin; I25.10 Atherosclerotic heart disease of native coronary artery without angina pectoris; Z86.73 Personal history of transient ischemic attack (TIA), and cerebral infarction without residual deficits
CPT/HCPCS: 36415; 36902; 80048; 85025; C1725; C1751; C1769; C1894; J1644; J2250; J3010; J7050; J0690; Q9967

== ENCOUNTER 2017-04-30 06:34 | Day surgery (SDC) | payer MEDICARE ==
[2017-04-30 07:31] LABS: INR 1.03 (0.87-1.13)
[2017-04-30 07:32] LABS: Calcium 8.4 mg/dL (8.4-10.2); Partial Thromboplastin Time 27.6 Sec. (24.2-36.6)
[2017-04-30] MEDS ORDERED: PERCOCET 5/325 PO ONE (07:48)
[2017-04-30 08:19] LABS: Basophils % (Auto) 0.5 % (0.0-1.8); Eosinophils # (Auto) 0.2 K/mm3 (0.0-0.4); Eosinophils % (Auto) 3.5 % (0.0-4.3); Hematocrit 32.6 % (35.5-45.6); Hemoglobin 10.2 gm/dl (11.8-15.2); Lymphocytes # (Auto) 1.6 K/mm3 (1.2-5.4); Mean Corpuscular HGB Conc 31 % (32-34); Mean Corpuscular Hemoglobin 29 pg (28-32); Mean Corpuscular Volume 93 fl (84-94); Monocytes # (Auto) 0.7 K/mm3 (0.0-0.8); Monocytes % (Auto) 12.6 % (0.0-7.3); Platelet Count 191 K/mm3 (140-440); Red Blood Count 3.52 M/mm3 (3.65-5.03); Red Cell Distribution Width 16.7 % (13.2-15.2)
[2017-04-30] MEDS ORDERED: HEPARIN/NS 5000 UNIT/500ML(CATH LAB) 1,000 ML IR ONE (08:29)
[2017-04-30] MEDS ORDERED: XYLOCAINE 1% 20 mL ONE (08:29)
[2017-04-30] MEDS ORDERED: NITROGLYCERIN SYRINGE 3 ML ONE ×2 (08:30→11:41)
[2017-04-30] MEDS ORDERED: CALAN ONE (08:30)
[2017-04-30] MEDS ORDERED: ANCEF/STERILE WATER 2 GM/20 ML 2 GM/20 ML SYRINGE IV ONE (09:18)
[2017-04-30] MEDS: HEPARIN 10,000 UNITS/10 ML ONE ×4 (09:30→11:20)
[2017-04-30] MEDS: SUBLIMAZE ONE ×3 (09:33→10:21)
[2017-04-30] MEDS: VERSED IV ONE ×3 (09:33→11:20)
[2017-04-30] MEDS ORDERED: HEPARIN/NS 5000 UNIT/500ML(CATH LAB) 500 ML IR ONE (11:27)
[2017-04-30] MEDS ORDERED: NITRO-BID 2% TP ONE (12:51)
--- NOTE | 2017-04-30 16:33 | Short Stay Summary ---
Short Stay Documentation Date of service: 04/30/17 Narrative H&P: 77-year-old male with end-stage renal disease and left arm - History Principal diagnosis: ESRD with LLE CLI H&P: obtained from office - Allergies and Medications Current Medications: Allergies No Known Allergies Allergy (Verified 11/30/15 00:22) Home Medications Medication Instructions Recorded Confirmed Last Taken Type Simvastatin [Zocor TAB] 40 mg PO QHS #30 tablet 12/06/15 04/30/17 04/29/17 Rx Aspirin [Aspirin TAB] 325 mg PO QDAY 03/11/16 04/30/17 04/29/17 History Insulin Glargine,Hum.rec.anlog 20 units SQ QHS 03/11/16 04/30/17 04/27/17 History [Lantus Solostar] Lactulose 10 gm PO PRN PRN 03/11/16 04/30/17 04/15/17 History Calcium Acetate [Phoslo] 667 mg PO TIDWM 04/30/17 04/30/17 04/29/17 History Carvedilol [Coreg] 12.5 mg PO QDAY 04/30/17 04/30/17 04/29/17 History Clopidogrel Bisulfate [Plavix] 75 mg PO QDAY 04/30/17 04/30/17 04/29/17 History Gabapentin [Neurontin] 600 mg PO TID 04/30/17 04/30/17 04/29/17 History Insulin Glulisine [Apidra] 10 units SQ QDAY 04/30/17 04/30/17 04/27/17 History Promethazine [Phenergan TAB] 25 mg PO BID 04/30/17 04/30/17 04/29/17 History Sertraline [Zoloft] 50 mg PO QDAY 04/30/17 04/30/17 04/29/17 History Vit B Comp No.3/Folic/C/Biotin 1 each PO HS 04/30/17 04/30/17 04/29/17 History [Nephro-Luis Rx Tablet] oxyCODONE /ACETAMINOPHEN [Percocet 1 tab PO Q8H PRN 04/30/17 04/30/17 04/26/17 History 5/325 mg] Active Medications Sodium Chloride (Nacl 0.9% 1000 Ml) 1,000 mls @ 42 mls/hr IV DIRECT MARA - Physical exam General appearance: no acute distress Lungs: Normal air movement Gastrointestinal: normal Extremities: normal temperature, normal color - Brief post op/procedure progress note Date of procedure: 04/30/17 Pre-op diagnosis: ESRD with LLE CLI Post-op diagnosis: same Procedure: Revasc of the LLE Anesthesia: local (w/ conscious sedation) Surgeon: VARGAS DIXON Estimated blood loss: minimal Condition: stable - Hospital course Hospital course: Ready for discharge back to nursing facility. - Disposition Condition at discharge: Stable Disposition: DC-01 TO HOME OR SELFCARE - Discharge Diagnoses (1) Critical ischemia of lower extremity Status: Acute Short Stay Discharge Plan Activity: advance as tolerated Weight Bearing Status: Weight Bear as Tolerated Diet: renal Wound: keep clean and dry, other (remove pressure dressing tomorrow AM (05/01/17) ) Follow up with: VARGAS DIXON MD [Staff Physician] - 7 Days EL MAYERS MD [Primary Care Provider] - 7 Days Forms: Post Arteriogram Instruct
[2017-04-30 16:54] VITALS: BP 124/76
--- NOTE | 2017-04-30 17:12 | Operative Report ---
Operative Report Operative Report: EXAM: 1. Ultrasound-guided access of the left common femoral artery, antegrade. 2. Angiography of the left lower extremity 3. Selection of the peroneal artery 4. Angioplasty of the distal peroneal artery with a 2 mm x 40 mm angioplasty balloon 5. Selection of the anterior tibial artery 6. Ultrasound-guided access of the left dorsalis pedis, retrograde 7. Attempted flossing of the left anterior tibial artery, ultimately unsuccessful 8. Selection of the posterior tibial artery DATE: 04/30/17 [employer]: VARGAS DIXON MD INDICATION: Age renal disease with left lower extremity critical limb ischemia with gangrene of the second and third digit and partial gangrene of the first digit MEDICATIONS: Please see nursing report for full details. DEVICES: 2 x 40 mm angioplasty balloon CONTRAST: Please see botany laboratory assistant Report for full details PROCEDURE: The risks, benefits, and alternatives were discussed with the patient; written informed consent was obtained. The patient was prepped and draped in a sterile fashion with the left groin and left foot prepped and draped in a sterile fashion. Under ultrasound guidance, the left common femoral artery was accessed antegrade direction. 0.018 inch wire was passed into the superficial femoral artery. Needle was exchanged for transitional dilator. Transitional dilator was exchanged over 0.035 inch wire for a 5 [place]yanese standard sheath. Digital subtraction angiography was performed of the left lower extremity demonstrating patency of the left common femoral artery, proximal superficial femoral and profunda femoral artery, mid superficial femoral artery, distal superficial femoral artery, 30% narrowing of the left above-knee popliteal artery, and patency of the mid and below the knee popliteal artery. The left tibial peroneal trunk was essentially patent with 10% residual narrowing with dominant runoff through the peroneal artery which was patent except for a focal high-grade narrowing in the distal peroneal artery. The peroneal artery supplied both the posterior tibial and dorsalis pedis artery through collaterals. The posterior tibial artery was patent except for a focal 1-2 cm occlusion with collaterals around the occluded segment. The anterior tibial artery was occluded in the proximal and midportion of the vessel with reconstitution of the distal portion of the anterior tibial artery which had multifocal moderate narrowings within it and mild diffuse narrowing of the dorsalis pedis. The patient was heparinized. The sheath was upsized to a 6 Guyanese 45 cm pinnacle destination positioned in the popliteal artery. The peroneal artery was then crossed with a V 18 wire. 2 mm x 40 mm angioplasty balloon was used to dilate the focal narrowed segment at high pressure for 3 minutes. Digital subtraction angiography was performed demonstrating resolution of the distal peroneal narrowing. I then selected the anterior tibial artery and used a variety of catheters including the Navicross and trailblazer. I tried to cross the occlusion and an antegrade direction, but was unsuccessful. The left dorsalis pedis was then evaluated with ultrasound and was heavily calcified, but patent. The artery was accessed with a 21-gauge micropuncture needle in a retrograde direction. 0.018 inch wire was passed into the artery. Needle was exchanged for the inner portion of a transitional dilator. Digital subtraction angiography was performed confirming position within the anterior tibial artery. Radial cocktail was administered. V 18 wire was then used and the inner portion of the transitional dilator was exchanged for a trailblazer. Using both retrograde and antegrade access, I attempted to cross the anterior tibial artery but was ultimately unsuccessful. During part of the attempted revascularization, the wire became stuck in the trailblazer. The wire was then removed through the trailblazer. The marker beads of the trailblazer became dislodged from the trailblazer and were positioned in the subintimal space. Trailblazer was removed over the wire and examined, and the marker beads were not on it. Further attempts at recannulization were attempted, but this was ultimately unsuccessful. The dislodged marker beads of the trailblazer were discussed with the family. I then attempted to cross the short segment occlusion in the posterior tibial artery, but despite multiple wires, the short segment occlusion was not crossable. Patient's vessels were diffusely heavily calcified which I suspect is the reason for difficulty crossing in both directions. As I was nearing 60 minutes of fluoroscopy time, I decided that the lesions were not crossable. At this point, all wires, catheters, and sheaths were removed and pressure was held until hemostasis was achieved. Pressure bandage was applied to the left common femoral artery. FINDINGS: Please see procedure note above. IMPRESSION: 1. Successful angioplasty of the left peroneal artery 2. Successful selection of the left anterior tibial and posterior tibial artery
== END 2017-04-30 16:10 | disposition home or self-care (01) ==
LOC: CATHLABREC 06:34
PROVIDERS: ATTEND Radiology Diagnostic Radiology
DX: E11.51 Type 2 diabetes mellitus with diabetic peripheral angiopathy without gangrene (principal); I70.245 Atherosclerosis of native arteries of left leg with ulceration of other part of foot; I70.262 Atherosclerosis of native arteries of extremities with gangrene, left leg; E11.22 Type 2 diabetes mellitus with diabetic chronic kidney disease; I13.0 Hypertensive heart and chronic kidney disease with heart failure and stage 1 through stage 4 chronic kidney disease, or unspecified chronic kidney disease; N18.6 End stage renal disease; I50.9 Heart failure, unspecified; E78.00 Pure hypercholesterolemia, unspecified; Z86.73 Personal history of transient ischemic attack (TIA), and cerebral infarction without residual deficits; Z95.1 Presence of aortocoronary bypass graft; Z98.890 Other specified postprocedural states; Z99.2 Dependence on renal dialysis; Z79.4 Long term (current) use of insulin; Z79.899 Other long term (current) drug therapy
CPT/HCPCS: 36005; 36415; 37228; 75710; 76937; 80048; 82962; 85025; 85610; 85730; 99156; 99157; C1725; C1751; C1769; C1887; C1894; J0690; J1644; J2250; J3010; J7030; Q9967

== ENCOUNTER 2017-08-03 14:50 | Inpatient (IN) | payer MEDICARE ==
[2017-08-03 16:40] LABS: Hematocrit 23.5 % (35.5-45.6); Hemoglobin 7.1 gm/dl (11.8-15.2); Mean Corpuscular HGB Conc 30 % (32-34); Mean Corpuscular Hemoglobin 27 pg (28-32); Mean Corpuscular Volume 91 fl (84-94); Platelet Count 163 K/mm3 (140-440); Red Blood Count 2.59 M/mm3 (3.65-5.03); Red Cell Distribution Width 18.4 % (13.2-15.2)
[2017-08-03 16:48] LABS: Calcium 8.3 mg/dL (8.4-10.2)
[2017-08-03 16:58] LABS: INR 1.08 (0.87-1.13)
[2017-08-03 17:00] LABS: Partial Thromboplastin Time 42.2 Sec. (24.2-36.6)
[2017-08-03] MEDS ORDERED: NACL 0.9% 500 ML 500 ML IV ONE (17:04)
--- NOTE | 2017-08-03 17:09 | Emergency Department Report ---
ED General Adult HPI - General Chief complaint: Recheck/Abnormal Lab/Rx Stated complaint: BLOOD TRANSFUSION/ACCESS PORT CLOGGED Time Seen by Provider: 08/03/17 16:12 Source: patient, EMS Mode of arrival: Stretcher Limitations: No Limitations - History of Present Illness Initial comments: Patient is a 77-year-old male with past medical history of hypertension diabetes peripheral vascular disease and recent Rotation of the left great toe 2 months ago who is presenting with shortness of breath and symptomatic anemia. Patient's family state that [facility] been [facility] his hemoglobin is drop significantly over the past several months. Patient's baseline hemoglobin is 10 and on his last laboratory value was 6.7. Patient's has some mild shortness of breath. Patient denies any chest pain fevers chills nausea vomiting or dark stools. Patient does have a painful decubitus ulcer on his bottom. - Related Data Home Medications Medication Instructions Recorded Confirmed Last Taken Aspirin [Aspirin TAB] 325 mg PO QDAY 03/11/16 04/30/17 04/29/17 Insulin Glargine,Hum.rec.anlog 20 units SQ QHS 03/11/16 04/30/17 04/27/17 [Lantus Solostar] Lactulose 10 gm PO PRN PRN 03/11/16 04/30/17 04/15/17 Calcium Acetate [Phoslo] 667 mg PO TIDWM 04/30/17 04/30/17 04/29/17 Carvedilol [Coreg] 12.5 mg PO QDAY 04/30/17 04/30/17 04/29/17 Clopidogrel Bisulfate [Plavix] 75 mg PO QDAY 04/30/17 04/30/17 04/29/17 Gabapentin [Neurontin] 600 mg PO TID 04/30/17 04/30/17 04/29/17 Insulin Glulisine [Apidra] 10 units SQ QDAY 04/30/17 04/30/17 04/27/17 Promethazine [Phenergan TAB] 25 mg PO BID 04/30/17 04/30/17 04/29/17 Sertraline [Zoloft] 50 mg PO QDAY 04/30/17 04/30/17 04/29/17 Vit B Comp No.3/Folic/C/Biotin 1 each PO HS 04/30/17 04/30/17 04/29/17 [Nephro-Luis Rx Tablet] oxyCODONE /ACETAMINOPHEN [Percocet 1 tab PO Q8H PRN 04/30/17 04/30/17 04/26/17 5/325 mg] Previous Rx's Medication Instructions Recorded Last Taken Type Simvastatin [Zocor TAB] 40 mg PO QHS #30 tablet 12/06/15 04/29/17 Rx Allergies Allergy/AdvReac Type Severity Reaction Status Date / Time No Known Allergies Allergy Verified 11/30/15 00:22 ED Review of Systems ROS: Stated complaint: BLOOD TRANSFUSION/ACCESS PORT CLOGGED Other details as noted in HPI Comment: All other systems reviewed and negative ED Past Medical Hx - Past Medical History Previous Medical History?: Yes Hx Hypertension: Yes Hx CVA: Yes Hx Congestive Heart Failure: Yes Hx Diabetes: Yes (type 2) Hx GERD: Yes Hx Renal Disease: Yes Hx Arthritis: Yes (HANDS AND FEET) Additional medical history: v-fib - Surgical History Past Surgical History?: Yes Additional Surgical History: peritoneal dialysis port, AV graft to left forearm - Social History Smoking Status: Never Smoker Substance Use Type: None - Medications Home Medications: Home Medications Medication Instructions Recorded Confirmed Last Taken Type Simvastatin [Zocor TAB] 40 mg PO QHS #30 tablet 12/06/15 04/30/17 04/29/17 Rx Aspirin [Aspirin TAB] 325 mg PO QDAY 03/11/16 04/30/17 04/29/17 History Insulin Glargine,Hum.rec.anlog 20 units SQ QHS 03/11/16 04/30/17 04/27/17 History [Lantus Solostar] Lactulose 10 gm PO PRN PRN 03/11/16 04/30/17 04/15/17 History Calcium Acetate [Phoslo] 667 mg PO TIDWM 04/30/17 04/30/17 04/29/17 History Carvedilol [Coreg] 12.5 mg PO QDAY 04/30/17 04/30/17 04/29/17 History Clopidogrel Bisulfate [Plavix] 75 mg PO QDAY 04/30/17 04/30/17 04/29/17 History Gabapentin [Neurontin] 600 mg PO TID 04/30/17 04/30/17 04/29/17 History Insulin Glulisine [Apidra] 10 units SQ QDAY 04/30/17 04/30/17 04/27/17 History Promethazine [Phenergan TAB] 25 mg PO BID 04/30/17 04/30/17 04/29/17 History Sertraline [Zoloft] 50 mg PO QDAY 04/30/17 04/30/17 04/29/17 History Vit B Comp No.3/Folic/C/Biotin 1 each PO HS 04/30/17 04/30/17 04/29/17 History [Nephro-Luis Rx Tablet] oxyCODONE /ACETAMINOPHEN [Percocet 1 tab PO Q8H PRN 04/30/17 04/30/17 04/26/17 History 5/325 mg] ED Physical Exam - General Limitations: No Limitations General appearance: alert, in no apparent distress, other (pale color) - Head Head exam: Present: atraumatic, normocephalic - Eye Eye exam: Present: normal appearance - ENT ENT exam: Present: mucous membranes dry, mucous membranes moist - Neck Neck exam: Present: normal inspection - Respiratory Respiratory exam: Present: normal lung sounds bilaterally. Absent: respiratory distress, wheezes, rales, rhonchi - Cardiovascular Cardiovascular Exam: Present: regular rate, normal rhythm. Absent: systolic murmur, diastolic murmur, rubs, gallop - GI/Abdominal GI/Abdominal exam: Present: soft, normal bowel sounds. Absent: distended, tenderness, guarding, rebound - Rectal Rectal exam: Present: deferred, heme (-) stool - Extremities Exam Extremities exam: Present: normal inspection - Back Exam Back exam: Present: normal inspection - Neurological Exam Neurological exam: Present: alert, oriented X3 - Psychiatric Psychiatric exam: Present: normal affect, normal mood - Skin Skin exam: Present: warm, dry, intact, normal color, other (patient has a large stage III decubitus ulcer on the sacrum). Absent: rash ED Course Vital Signs 08/03/17 15:25 Temperature 97.8 F Pulse Rate 76 Respiratory 18 Rate Blood Pressure 109/53 O2 Sat by Pulse 96 Oximetry ED Medical Decision Making - Lab Data Result diagrams: 08/03/17 16:14 08/03/17 16:14 - Medical Decision Making The patient will have a blood transfusion ordered. Patient is Hemoccult negative at this time. Patient be admitted for further management to Dr. Oropeza of the hospitalist service. Critical care attestation.: If time is entered above; I have spent that time in minutes in the direct care of this critically ill patient, excluding procedure time. ED Disposition Clinical Impression: Symptomatic anemia Disposition: OP ADMIT IP TO THIS HOSP Is pt being admited?: Yes Does the pt Need Aspirin: No Condition: Stable Referrals: PRIMARY CARE, [Primary Care Provider] - 3-5 Days
[2017-08-03] MEDS ORDERED: PERCOCET 5/325 PO PRN (20:32)
[2017-08-03] MEDS: NEURONTIN PO SCH ×2 (20:44→23:31)
[2017-08-03] MEDS ORDERED: NACL 0.9% 500 ML 500 ML ONE (23:42)
--- NOTE | 2017-08-04 00:05 | Event Note ---
Date: 08/03/17 See dictated H/p in reports Gangrene L Foot Sacral Decubitus ulcer
[2017-08-04] MEDS ORDERED: PERCOCET 5/325 PO PRN (00:11)
[2017-08-04] MEDS ORDERED: ZOFRAN IV PRN ×2 (00:22→00:26)
[2017-08-04] MEDS ORDERED: TYLENOL PO PRN ×2 (00:22→00:26)
[2017-08-04] MEDS ORDERED: SODIUM CHLORIDE FLUSH SYRINGE 10 ML IV PRN ×2 (00:22→00:26)
[2017-08-04] MEDS ORDERED: MORPHINE IV PRN (00:23)
--- NOTE | 2017-08-04 00:50 | History and Physical Report ---
CHIEF COMPLAINT: Low blood count, sent for transfusion. HISTORY OF PRESENT ILLNESS: A 77-year-old Syrian black male with past medical history of hypertension, insulin-dependent diabetes, peripheral vascular disease, and recent amputation of the left great toe sent in for symptomatic anemia and shortness of breath. The patient is a senior care and been doing his blood work regularly. His hemoglobin apparently dropped from a baseline of 10 to 7. The patient has some shortness of breath. The patient has end-stage renal disease. The patient is on dialysis. Increasing fatigue recently. Also, no fever, no chills. No exacerbating or relieving factors. PAST MEDICAL HISTORY: Significant for end-stage renal disease, insulin-dependent diabetes, hypertension, coronary artery disease, depression, chronic pain. Also, decubitus ulcers on the sacrum and peripheral arterial disease with left foot great toe removed recently and some other toes removed recently. PAST SURGICAL HISTORY: Left foot surgery recently. Peritoneal dialysis port. AV graft in the left arm. SOCIAL HISTORY: Does not smoke. Lives in a senior care. FAMILY HISTORY: Hypertension. REVIEW OF SYSTEMS: Significant for low blood count, easy fatigability, shortness of breath on minimal exertion and sacral decubitus ulcers and left foot looking black. Otherwise, review of systems negative. PHYSICAL EXAMINATION: GENERAL: Elderly male, cooperative during examination. Alert and oriented. VITAL SIGNS: Blood pressure is 120/72, temperature is 98.7, pulse is 80, respirations 11. HEENT: Unremarkable. Pale mucous membranes. NECK: Supple, no lymphadenopathy, no thyromegaly. LUNGS: Clear to auscultation and percussion. Good air entry. CARDIOVASCULAR: S1, S2 heard. No gallop, no murmur, no rub. Apical impulse in left fifth intercostal space and midclavicular line. ABDOMEN: Soft and benign. No hepatosplenomegaly. No guarding, no rigidity. Hernial orifices are normal. EXTREMITIES: Sacrum 5 cm x 5 cm with 2 mm depth of the ulcer present. Slight drainage present. Purulent drainage. Left foot gangrenous changes with the appearance of transmetatarsal amputation. The half of the distal foot is black. No drainage. CENTRAL NERVOUS SYSTEM: Alert and oriented x 4, nonfocal exam. SKIN: As mentioned, decubitus ulcers in the sacrum. Photographs on the chart 5 cm x 5 cm x 2 mm. Also left foot gangrene changes. LABORATORY DATA: Significant for white count of 9300, H and H of 7.1 and 23.5, platelet count is 163,000. Protime is 14.6. INR is 1.08, PTT is 42.8. Sodium is 142, potassium is 4.0, bicarb is 27, BUN and creatinine 60 and 1.8, calcium is 8.3. ASSESSMENT AND PLAN: 1. Left foot gangrene. IV antibiotics started. Vascular Surgery consult requested. 2. Sacral decubitus ulcers. Wound care. Surgery consult requested and wound care to take care of the sacral wound. 3. Insulin-dependent diabetes. Continue insulin and coverage. 4. Hyperlipidemia. Continue simvastatin. 5. Hypertension. Continue Coreg 12.5 twice a day. 6. Coronary artery disease. Continue Plavix 75 once a day. 7. Depression. Continue sertraline 50 mg once a day. 8. Chronic pain. Continue Percocet q. 8 hours p.r.n. 9. Deep venous thrombosis prophylaxis. Lovenox 40 mg subcutaneous daily. 10.Anemia sec to ESRD and Nutrition--Transfuse 1 unit of prbc during HD JOB# [id number] VSIain/BENI DE JESUS
[2017-08-04] MEDS ORDERED: NACL 0.9% 1000 ML 1,000 ML IV SCH (01:00)
[2017-08-04] MEDS ORDERED: ZOSYN/NS 2.25 GM/50ML 2.25 GM/50 ML BAG IV SCH ×2 (01:00→14:00)
[2017-08-04] MEDS ORDERED: VANCOMYCIN PHARMACY TO DOSE IV SCH (01:00)
[2017-08-04] MEDS ORDERED: VANCOMYCIN 1,250 MG in NACL 0.9% 250ML 250 ML IV ONE (01:00)
[2017-08-04] MEDS ORDERED: ZOSYN/NS 3.375GM/50ML 3.375 GM/50 ML BAG IV SCH (01:00)
[2017-08-04] MEDS: PEPCID PO SCH ×3 (01:02→11:32)
[2017-08-04] MEDS: PHENERGAN PO SCH ×3 (01:02→11:32)
[2017-08-04] MEDS ORDERED: NEURONTIN PO SCH ×2 (06:00→14:00)
[2017-08-04] MEDS ORDERED: HumaLOG SUB-Q SCH (07:30)
[2017-08-04] MEDS ORDERED: INSULIN GLULISINE 10 UNIT SQ SCH (07:30)
[2017-08-04] MEDS ORDERED: NACL 0.9% 500 ML 500 ML IV ONE ×2 (07:42→09:36)
[2017-08-04] MEDS ORDERED: NON-FORMULARY (Gabapentin [Neurontin] 600 MG) PO SCH (08:00)
[2017-08-04] MEDS: PLAVIX PO SCH ×2 (08:36→11:32)
[2017-08-04] MEDS: PHOSLO PO SCH ×3 (08:36→17:46)
[2017-08-04] MEDS: ZOLOFT PO SCH ×2 (08:36→11:33)
[2017-08-04] MEDS: ASPIRIN PO SCH ×2 (08:36→11:31)
[2017-08-04] MEDS: COREG PO SCH ×2 (08:37→11:32)
[2017-08-04] MEDS: SODIUM CHLORIDE FLUSH SYRINGE 10 ML IV SCH ×2 (08:38→11:33)
[2017-08-04 09:04] LABS: Hematocrit 25.7 % (35.5-45.6); Hemoglobin 7.8 gm/dl (11.8-15.2)
--- NOTE | 2017-08-04 09:35 | Consultation ---
History of Present Illness - Reason for Consult Consult date: 08/04/17 end stage renal disease Requesting physician: AZAM MARSH - History of Present Illness Patient is a 77-year-old male with past medical history of hypertension diabetes peripheral vascular disease and recent Rotation of the left great toe 2 months ago who is presenting with shortness of breath and symptomatic anemia. Patient's family state that at the longterm they've been trending his hemoglobin is drop significantly over the past several months. Patient's baseline hemoglobin is 10 and on his last laboratory value was 6.7. Patient's has some mild shortness of breath. Patient denies any chest pain fevers chills nausea vomiting or dark stools. Patient does have a painful decubitus ulcer on his bottom. ROS: Stated complaint: BLOOD TRANSFUSION/ACCESS PORT CLOGGED Other details as noted in HPI Comment: All other systems reviewed and negative - Past Medical History Previous Medical History?: Yes Hx Hypertension: Yes Hx CVA: Yes Hx Congestive Heart Failure: Yes Hx Diabetes: Yes (type 2) Hx GERD: Yes Hx Renal Disease: Yes Hx Arthritis: Yes (HANDS AND FEET) Additional medical history: v-fib - Surgical History Past Surgical History?: Yes Additional Surgical History: peritoneal dialysis port, AV graft to left forearm - Social History Smoking Status: Never Smoker Substance Use Type: None Medications and Allergies Allergies Allergy/AdvReac Type Severity Reaction Status Date / Time No Known Allergies Allergy Verified 11/30/15 00:22 Home Medications Medication Instructions Recorded Confirmed Last Taken Type Simvastatin [Zocor TAB] 40 mg PO QHS #30 tablet 12/06/15 08/04/17 04/29/17 Rx Aspirin [Aspirin TAB] 325 mg PO QDAY 03/11/16 04/30/17 04/29/17 History Insulin Glargine,Hum.rec.anlog 30 units SQ QHS 03/11/16 08/04/17 04/27/17 History [Lantus Solostar] Lactulose 10 gm PO PRN PRN 03/11/16 08/04/17 04/15/17 History Calcium Acetate [Phoslo] 667 mg PO TIDWM 04/30/17 08/04/17 04/29/17 History Carvedilol [Coreg] 12.5 mg PO QDAY 04/30/17 04/30/17 04/29/17 History Clopidogrel Bisulfate [Plavix] 75 mg PO QDAY 04/30/17 04/30/17 04/29/17 History Gabapentin [Neurontin] 600 mg PO TID 04/30/17 08/04/17 08/03/17 22:00 History Promethazine [Phenergan TAB] 25 mg PO BID 04/30/17 04/30/17 04/29/17 History Sertraline [Zoloft] 50 mg PO QDAY 04/30/17 04/30/17 04/29/17 History Vit B Comp No.3/Folic/C/Biotin 1 each PO HS 04/30/17 04/30/17 04/29/17 History [Nephro-Luis Rx Tablet] oxyCODONE /ACETAMINOPHEN [Percocet 1 tab PO Q8H PRN 04/30/17 08/04/17 04/26/17 History 5/325 mg] Ipratropium/Albuter (Nf) 2.5 mg IH Q4H PRN 08/04/17 08/04/17 Unknown History Active Meds: Active Medications Acetaminophen (Tylenol) 650 mg PO Q4H PRN PRN Reason: Pain MILD(1-3)/Fever >100.5/ROMAN Aspirin (Aspirin) 325 mg PO QDAY [facility] Last Admin: 08/04/17 08:36 Dose: 325 mg Calcium Acetate (Phoslo) 667 mg PO TIDWM [facility] Last Admin: 08/04/17 08:36 Dose: 667 mg Carvedilol (Coreg) 12.5 mg PO QDAY [facility] Last Admin: 08/04/17 08:37 Dose: 12.5 mg Clopidogrel Bisulfate (Plavix) 75 mg PO QDAY [facility] Last Admin: 08/04/17 08:36 Dose: 75 mg Famotidine (Pepcid) 10 mg PO BID [facility] Last Admin: 08/04/17 08:36 Dose: 10 mg Gabapentin (Neurontin) 600 mg PO Q8HR [facility] Last Admin: 08/04/17 06:21 Dose: 600 mg Sodium Chloride (Nacl 0.9% 1000 Ml) 1,000 mls @ 75 mls/hr IV DIRECT [facility] Stop: 08/04/17 23:59 Last Admin: 08/04/17 03:05 Dose: 75 mls/hr Piperacillin Sod/Tazobactam Sod (Zosyn/Ns 2.25 Gm/50ml) 2.25 gm in 50 mls @ 100 mls/hr IV Q8HR [facility] Insulin Glargine (Lantus) 20 units SUB-Q QHS [facility] Insulin Human Lispro (Humalog) 10 unit SUB-Q AC [facility] Last Admin: 08/04/17 09:18 Dose: 10 unit Lactulose (Cephulac) 10 gm PO QDAY PRN PRN Reason: Constipation Morphine Sulfate (Morphine) 2 mg IV Q4H PRN PRN Reason: Pain, Moderate (4-6) Ondansetron HCl (Zofran) 4 mg IV Q8H PRN PRN Reason: Nausea And Vomiting Oxycodone/Acetaminophen (Percocet 5/325) 1 tab PO Q8H PRN PRN Reason: Pain Pravastatin Sodium (Pravachol) 80 mg PO QHS [facility] Promethazine HCl (Phenergan) 25 mg PO BID [facility] Last Admin: 08/04/17 08:36 Dose: 25 mg Sertraline HCl (Zoloft) 50 mg PO QDAY [facility] Last Admin: 08/04/17 08:36 Dose: 50 mg Sodium Chloride (Sodium Chloride Flush Syringe 10 Ml) 10 ml IV BID [facility] Last Admin: 08/04/17 08:38 Dose: 10 ml Sodium Chloride (Sodium Chloride Flush Syringe 10 Ml) 10 ml IV PRN PRN PRN Reason: LINE FLUSH Vancomycin HCl (Vancomycin Pharmacy To Dose) 1 each IV PKCONSULT [facility]; Protocol Exam - Vital Signs Vital signs: Vital Signs Resp 12 08/03/17 15:15 - Physical Exam Narrative exam: - General Limitations: No Limitations General appearance: alert, in no apparent distress, other (pale color) - Head Head exam: Present: atraumatic, normocephalic - Eye Eye exam: Present: normal appearance - ENT ENT exam: Present: mucous membranes dry, mucous membranes moist - Neck Neck exam: Present: normal inspection - Respiratory Respiratory exam: Present: normal lung sounds bilaterally. Absent: respiratory distress, wheezes, rales, rhonchi - Cardiovascular Cardiovascular Exam: Present: regular rate, normal rhythm. Absent: systolic murmur, diastolic murmur, rubs, gallop - GI/Abdominal GI/Abdominal exam: Present: soft, normal bowel sounds. Absent: distended, tenderness, guarding, rebound - Rectal Rectal exam: Present: deferred, heme (-) stool - Extremities Exam Extremities exam: Present: normal inspection - Back Exam Back exam: Present: normal inspection - Neurological Exam Neurological exam: Present: alert, oriented X3 - Psychiatric Psychiatric exam: Present: normal affect, normal mood - Skin Skin exam: Present: warm, dry, intact, normal color, other (patient has a large stage III decubitus ulcer on the sacrum). Absent: rash Results - Lab Results 08/04/17 08:02 08/03/17 16:14 Most recent lab results Calcium 8.3 mg/dL (8.4-10.2) L 08/03/17 16:14 Assessment and Plan Impression: * ESRD * Anemia * HTN * Cardiomyopathy * PVD * Foot ulcer * Decubiti Plan: * HD q MWF * prbcs with hd in am * strict i/os * uf as tolerated with hd * wound and anemia workup per primary team * daily cbc and lytes * renal diet
[2017-08-04] MEDS ORDERED: ALBURX 25% (ALBUMIN) IV PRN (09:36)
[2017-08-04] MEDS ORDERED: NACL 0.9% 100 ML IV PRN (09:36)
[2017-08-04] MEDS ORDERED: CEPHULAC PO PRN (10:00)
[2017-08-04] MEDS ORDERED: SODIUM CHLORIDE FLUSH SYRINGE 10 ML IV SCH (10:00)
[2017-08-04] MEDS ORDERED: PEPCID IV SCH (10:00)
[2017-08-04 10:23] VITALS: BP 119/44
[2017-08-04] MEDS ORDERED: D50W (25GM) Syringe IV ONE ×3 (12:04→14:54)
--- NOTE | 2017-08-04 12:04 | Consultation ---
History of Present Illness - Reason for Consult Consult date: 08/04/17 left foot gangrene and sacral dec Requesting physician: TESS CARLISLE - History of Present Illness 77 y/o male with history of hypertension, diabetes, peripheral vascular disease and recent amputation of the left great toe 2 months before; admitted on due to who is presenting with shortness of breath and symptomatic anemia. Patient's family state that at the detention they've been trending his hemoglobin is drop significantly over the past several months. Patient's baseline hemoglobin is 10 and on his last laboratory value was 6.7. Patient's has some mild shortness of breath. Patient denies any chest pain fevers chills nausea vomiting or dark Microbiology: Blood cultures: Urine cultures: Respiratory cultures: Wound cultures: Stool cultures: Other: Current Antimicrobials: Zosyn Ceftriaxone Levaquin Vancomycin Cefazolin Cefepime Meropenem Clindamycin Metronidazole Previous Antimicrobials: Medications and Allergies Allergies Allergy/AdvReac Type Severity Reaction Status Date / Time No Known Allergies Allergy Verified 11/30/15 00:22 Home Medications Medication Instructions Recorded Confirmed Last Taken Type Simvastatin [Zocor TAB] 40 mg PO QHS #30 tablet 12/06/15 08/04/17 04/29/17 Rx Aspirin [Aspirin TAB] 325 mg PO QDAY 03/11/16 04/30/17 04/29/17 History Insulin Glargine,Hum.rec.anlog 30 units SQ QHS 03/11/16 08/04/17 04/27/17 History [Lantus Solostar] Lactulose 10 gm PO PRN PRN 03/11/16 08/04/17 04/15/17 History Calcium Acetate [Phoslo] 667 mg PO TIDWM 04/30/17 08/04/17 04/29/17 History Carvedilol [Coreg] 12.5 mg PO QDAY 04/30/17 04/30/17 04/29/17 History Clopidogrel Bisulfate [Plavix] 75 mg PO QDAY 04/30/17 04/30/17 04/29/17 History Gabapentin [Neurontin] 600 mg PO TID 04/30/17 08/04/17 08/03/17 22:00 History Promethazine [Phenergan TAB] 25 mg PO BID 04/30/17 04/30/17 04/29/17 History Sertraline [Zoloft] 50 mg PO QDAY 04/30/17 04/30/17 04/29/17 History Vit B Comp No.3/Folic/C/Biotin 1 each PO HS 04/30/17 04/30/17 04/29/17 History [Nephro-Luis Rx Tablet] oxyCODONE /ACETAMINOPHEN [Percocet 1 tab PO Q8H PRN 04/30/17 08/04/17 04/26/17 History 5/325 mg] Ipratropium/Albuter (Nf) 2.5 mg IH Q4H PRN 08/04/17 08/04/17 Unknown History Active Meds: Active Medications Acetaminophen (Tylenol) 650 mg PO Q4H PRN PRN Reason: Pain MILD(1-3)/Fever >100.5/ROMAN Albumin Human (Alburx 25% (Albumin)) 25 gm IV HAYDEE PRN PRN Reason: Hypotension Aspirin (Aspirin) 325 mg PO QDAY [facility] Last Admin: 08/04/17 11:31 Dose: Not Given Calcium Acetate (Phoslo) 667 mg PO TIDWM [facility] Last Admin: 08/04/17 08:36 Dose: 667 mg Carvedilol (Coreg) 12.5 mg PO QDAY [facility] Last Admin: 08/04/17 11:32 Dose: Not Given Clopidogrel Bisulfate (Plavix) 75 mg PO QDAY [facility] Last Admin: 08/04/17 11:32 Dose: Not Given Epoetin Mehdi (Epogen) 20,000 unit IV HAYDEE PRN PRN Reason: hemodialysis Famotidine (Pepcid) 10 mg PO BID [facility] Last Admin: 08/04/17 11:32 Dose: Not Given Gabapentin (Neurontin) 100 mg PO Q8HR [facility] Sodium Chloride (Nacl 0.9% 1000 Ml) 1,000 mls @ 75 mls/hr IV DIRECT [facility] Stop: 08/04/17 23:59 Last Admin: 08/04/17 03:05 Dose: 75 mls/hr Piperacillin Sod/Tazobactam Sod (Zosyn/Ns 2.25 Gm/50ml) 2.25 gm in 50 mls @ 100 mls/hr IV Q8HR [facility] Sodium Chloride (Nacl 0.9%) 100 mls @ 999 mls/hr IV HAYDEE PRN PRN Reason: Hypotension Insulin Glargine (Lantus) 20 units SUB-Q QHS [facility] Insulin Human Lispro (Humalog) 10 unit SUB-Q AC [facility] Last Admin: 08/04/17 09:18 Dose: 10 unit Lactulose (Cephulac) 10 gm PO QDAY PRN PRN Reason: Constipation Morphine Sulfate (Morphine) 2 mg IV Q4H PRN PRN Reason: Pain, Moderate (4-6) Ondansetron HCl (Zofran) 4 mg IV Q8H PRN PRN Reason: Nausea And Vomiting Oxycodone/Acetaminophen (Percocet 5/325) 1 tab PO Q8H PRN PRN Reason: Pain, Moderate (4-6) Pravastatin Sodium (Pravachol) 80 mg PO QHS [facility] Promethazine HCl (Phenergan) 25 mg PO BID [facility] Last Admin: 08/04/17 11:32 Dose: Not Given Sertraline HCl (Zoloft) 50 mg PO QDAY [facility] Last Admin: 08/04/17 11:33 Dose: Not Given Sodium Chloride (Sodium Chloride Flush Syringe 10 Ml) 10 ml IV BID [facility] Last Admin: 08/04/17 11:33 Dose: Not Given Sodium Chloride (Sodium Chloride Flush Syringe 10 Ml) 10 ml IV PRN PRN PRN Reason: LINE FLUSH Vancomycin HCl (Vancomycin Pharmacy To Dose) 1 each IV PKCONSULT [facility]; Protocol Physical Examination - Physical Exam Narrative exam: General appearance: Alert in NAD, conversant Eyes: anicteric sclerae, moist conjunctivae; no lid-lag; PERRLA HENT: Atraumatic; oropharynx clear with moist mucous membranes and no mucosal ulcerations/no oral thrush; normal hard and soft palate. Normal external ears. Neck: Trachea midline; supple, no thyromegaly or lymphadenopathy Lungs: CTA, with normal respiratory effort and no intercostal retractions CV: RRR, no murmurs Abdomen: Soft, non-tender; no masses or hepatosplenomegaly Extremities: No peripheral edema or extremity lymphadenopathy Skin: Normal temperature, turgor and texture; no rash, ulcers or subcutaneous nodules Psych: Appropriate affect, alert and oriented to person, place and time. Neuro: alert and oriented x 3. Moving all extermities Lines: No CVL / PICC - Constitutional Vitals: Vital Signs Temp Pulse Resp BP Pulse Ox 97.6 F 66 19 119/44 96 08/04/17 08:35 08/04/17 08:36 08/04/17 08:35 08/04/17 08:36 08/04/17 08:36 Temperature -Last 24 Hours Temperature 97.6 F Temperature 97.7 F Temperature 97.5 F Temperature 97.7 F Temperature 97.7 F Temperature 97.5 F Temperature 98.3 F Temperature 98.7 F Temperature 97.8 F Results - Labs CBC & Chem 7: 08/04/17 08:02 08/04/17 13:02 Labs: Abnormal lab results 08/03/17 08/03/17 08/03/17 Range/Units 16:14 16:14 16:27 RBC 2.59 L (3.65-5.03) M/mm3 Hgb 7.1 L (11.8-15.2) gm/dl Hct 23.5 L (35.5-45.6) % MCH 27 L (28-32) pg MCHC 30 L (32-34) % RDW 18.4 H (13.2-15.2) % APTT 42.2 H (24.2-36.6) Sec. BUN 6 L (9-20) mg/dL Creatinine 1.8 H (0.8-1.5) mg/dL Calcium 8.3 L (8.4-10.2) mg/dL Crossmatch 08/03/17 08/04/17 Range/Units 17:30 08:02 RBC (3.65-5.03) M/mm3 Hgb 7.8 L (11.8-15.2) gm/dl Hct 25.7 L (35.5-45.6) % MCH (28-32) pg MCHC (32-34) % RDW (13.2-15.2) % APTT (24.2-36.6) Sec. BUN (9-20) mg/dL Creatinine (0.8-1.5) mg/dL Calcium (8.4-10.2) mg/dL Crossmatch See Detail Assessment and Plan Assessment: 1) Sepsis: Present on admission, manifested by fever, tachycardia, hypotension, leukocytosis, bandemia, increased lactate. Etiology most likely. Plan: -follow-up blood cultures, urine culture Thank you for your consultation, will follow up with you. Kristen Lovell MD Infectious Diseases Specialist [facility] M [phone] O [phone]
--- NOTE | 2017-08-04 13:23 | XRay Report ---
PORTABLE CHEST INDICATION: Pneumonia, sepsis. COMPARISON: 11/30/2015 FINDINGS: Portable, frontal chest radiograph again demonstrates limited inspiration with mild exaggerated cardiomediastinal silhouette, aortic knob calcifications and demineralized bones with multilevel thoracic spondylosis. New right-sided dual-lumen catheter tip near the cavoatrial junction. Interval sternotomy. Bronchovascular crowding now noted centrally with mild increased mid to lower lung atelectasis bilaterally. Subtle left lower lung haziness with costophrenic angle blunting may again suggests pleural thickening or fluid. CONCLUSION: New right-sided central catheter, sternotomy, mild increased bibasilar atelectasis and possible slight central congestion, as described. Please correlate. Thank you for the opportunity to participate in this patient's care.
[2017-08-04] MEDS ORDERED: D10W 1,000 ML IV SCH ×2 (16:00)
--- NOTE | 2017-08-04 16:08 | Discharge Summary ---
Providers - Providers Date of Admission: 08/03/17 17:09 Attending physician: TESS CARLISLE MD 08/04/17 Consult to Case Management [CONS] Routine Services Needed at Discharge: [employer] Notified:: BEST 08/04/17 00:24 Consult to Dietitian/Nutrition [CONS] Routine Physician Instructions: Reason For Exam: Reason for Consult: Pt needs oral supplement 08/04/17 00:26 Consult to Physician [CONS] Routine Comment: HARDIK Consulting Provider: KAITLIN LICEA Physician Instructions: CONSULT WAS CALLED TO DR. LICEA [phone]/BHAVNA Reason For Exam: ESRD 08/04/17 00:28 Consult to Physician [CONS] Routine Comment: Consulting Provider: JEAN CLAUDE OVALLES Physician Instructions: Reason For Exam: Gangrene Rt Foot 08/04/17 00:29 Consult to Physician [CONS] Routine Comment: HARDIK Consulting Provider: SUZANNE WOODWARD Physician Instructions: CONSULT WAS CALLED TO DR. RAYGOZA [phone] Reason For Exam: Decub ulcer--Sacrum /L foot gzngrene 08/04/17 01:01 Consult to Wound/ET Nurse [CONS] Routine Reason For Exam: wound eval 08/04/17 07:37 Consult to Physician [CONS] Routine Comment: HARDIK Consulting Provider: ELIZABETH SMITH Physician Instructions: CONSULT WAS CALLED TO /ZAYNAB Reason For Exam: Sacral wound 08/04/17 07:42 Physical Therapy Evaluation and Treat [CONS] Routine Comment: Eval Reason For Exam: debility 08/04/17 12:38 Speech Therapy Evaluation and Treat [CONS] Routine Reason For Exam: swallow eval Primary care physician: TREATER HELPER Hospitalization Reason for admission: ANEMIA Condition: Stable Hospital course: Patient is a 77-year-old male with past medical history of hypertension diabetes peripheral vascular disease and recent Rotation of the left great toe 2 months ago who is presenting with shortness of breath and symptomatic anemia. Patient's family state that at the [facility] they've been trending his hemoglobin is drop significantly over the past several months. Patient's baseline hemoglobin is 10 and on his last laboratory value was 6.7. Patient's has some mild shortness of breath. Patient denies any chest pain fevers chills nausea vomiting or dark stools. Patient does have a painful decubitus ulcer on his bottom. On arrival patient was noted to be hypoglycemia and started corrective measures, patient was also noted to family to have been losing significant amounts of weight for by mouth intake and would not want any PEG tube. Patients family decided DNR and Hospice placement and patient is discharged to hospice. Discharge Diagnosis Left foot gangrene Acute On chronic Encephalopathy Acute on chronic Anemia Sacral Decubitus Ulcer Insulin Dependent Diabetes Hyperlipidemia Hypoglycemia HTN CAD DEPRESSION CHRONIC PAIN Disposition: DC/TX-03 [facility] Time spent for discharge: 35 MINS Core Measure Documentation - Palliative Care Palliative Care/ Comfort Measures: Hospice Care - Core Measures Any of the following diagnoses?: none - VTE Discharge Requirements Deep Vein Thrombosis/Pulmonary Embolism Present on Admission: No Exam - Physical Exam Narrative exam: General appearance: Weak, unresponsive - Head Head exam: Present: atraumatic, normocephalic - Eye Eye exam: Present: normal appearance - ENT ENT exam: Present: mucous membranes dry, mucous membranes moist - Neck Neck exam: Present: normal inspection - Respiratory Respiratory exam: Present: normal lung sounds bilaterally. Absent: respiratory distress, wheezes, rales, rhonchi - Cardiovascular Cardiovascular Exam: Present: regular rate, normal rhythm. Absent: systolic murmur, diastolic murmur, rubs, gallop - GI/Abdominal GI/Abdominal exam: Present: soft, normal bowel sounds. Absent: distended, tenderness, guarding, rebound - Rectal Rectal exam: Present: deferred, heme (-) stool - Extremities Exam Extremities exam: Present: normal inspection - Back Exam Back exam: Present: normal inspection - Neurological Exam Neurological exam: encephalopathy - Psychiatric Psychiatric exam: Present: normal affect, normal mood - Skin Skin exam: Present: warm, dry, intact, normal color, other (patient has a large stage III decubitus ulcer on the sacrum). Absent: rash - Constitutional Vitals: Temp Pulse Resp BP Pulse Ox 97.6 F 66 19 119/44 96 08/04/17 08:35 08/04/17 08:36 08/04/17 08:35 08/04/17 08:36 08/04/17 08:36 Plan Activity: advance as tolerated Diet: low cholesterol Special Instructions: record daily BP diary Additional Instructions: with Hospice Follow up with: PRIMARY CARE, [Primary Care Provider] - 3-5 Days
--- NOTE | 2017-08-04 16:55 | Consultation ---
History of Present Illness Consult date: 08/04/17 Chief complaint: sacral wound - History of present illness History of present illness: 77 yo M with hx of HTN, DM, PVD, nonambulatory [facility] with SOB and anemia. The patient is nonverbal and all of the history is obtained from the chart and the patient's family. The patient's said he has been declining for the past several months. His oral intake has become very poor. He has been in multiple different hospitals for treatments. He does not walk and has wound on his lower extremities and sacrum. Surgery is consulted for sacral ulcer. Past History Past Medical History: anemia, diabetes, ESRD, GERD, hypertension, hyperlipidemia , PVD Past Surgical History: Other (dialysis catheter, AVG) Social history: , other (lives in nursing facility) Family history: no significant family history Medications and Allergies Allergies Allergy/AdvReac Type Severity Reaction Status Date / Time No Known Allergies Allergy Verified 11/30/15 00:22 Home Medications Medication Instructions Recorded Confirmed Last Taken Type Simvastatin [Zocor TAB] 40 mg PO QHS #30 tablet 12/06/15 08/04/17 04/29/17 Rx Aspirin [Aspirin TAB] 325 mg PO QDAY 03/11/16 04/30/17 04/29/17 History Insulin Glargine,Hum.rec.anlog 30 units SQ QHS 03/11/16 08/04/17 04/27/17 History [Lantus Solostar] Lactulose 10 gm PO PRN PRN 03/11/16 08/04/17 04/15/17 History Calcium Acetate [Phoslo] 667 mg PO TIDWM 04/30/17 08/04/17 04/29/17 History Carvedilol [Coreg] 12.5 mg PO QDAY 04/30/17 04/30/17 04/29/17 History Clopidogrel Bisulfate [Plavix] 75 mg PO QDAY 04/30/17 04/30/17 04/29/17 History Gabapentin [Neurontin] 600 mg PO TID 04/30/17 08/04/17 08/03/17 22:00 History Promethazine [Phenergan TAB] 25 mg PO BID 04/30/17 04/30/17 04/29/17 History Sertraline [Zoloft] 50 mg PO QDAY 04/30/17 04/30/17 04/29/17 History Vit B Comp No.3/Folic/C/Biotin 1 each PO HS 04/30/17 04/30/17 04/29/17 History [Nephro-Luis Rx Tablet] oxyCODONE /ACETAMINOPHEN [Percocet 1 tab PO Q8H PRN 04/30/17 08/04/17 04/26/17 History 5/325 mg] Ipratropium/Albuter (Nf) 2.5 mg IH Q4H PRN 08/04/17 08/04/17 Unknown History Active Meds: Active Medications Acetaminophen (Tylenol) 650 mg PO Q4H PRN PRN Reason: Pain MILD(1-3)/Fever >100.5/ROMAN Albumin Human (Alburx 25% (Albumin)) 25 gm IV HAYDEE PRN PRN Reason: Hypotension Aspirin (Aspirin) 325 mg PO QDAY [facility] Last Admin: 08/04/17 11:31 Dose: Not Given Calcium Acetate (Phoslo) 667 mg PO TIDWM [facility] Last Admin: 08/04/17 12:59 Dose: Not Given Carvedilol (Coreg) 12.5 mg PO QDAY [facility] Last Admin: 08/04/17 11:32 Dose: Not Given Clopidogrel Bisulfate (Plavix) 75 mg PO QDAY [facility] Last Admin: 08/04/17 11:32 Dose: Not Given Epoetin Mehdi (Epogen) 20,000 unit IV HAYDEE PRN PRN Reason: hemodialysis Famotidine (Pepcid) 10 mg PO BID [facility] Last Admin: 08/04/17 11:32 Dose: Not Given Gabapentin (Neurontin) 100 mg PO Q8HR [facility] Sodium Chloride (Nacl 0.9% 1000 Ml) 1,000 mls @ 75 mls/hr IV DIRECT [facility] Stop: 08/04/17 23:59 Last Admin: 08/04/17 03:05 Dose: 75 mls/hr Piperacillin Sod/Tazobactam Sod (Zosyn/Ns 2.25 Gm/50ml) 2.25 gm in 50 mls @ 100 mls/hr IV Q8HR [facility] Sodium Chloride (Nacl 0.9%) 100 mls @ 999 mls/hr IV HAYDEE PRN PRN Reason: Hypotension Dextrose (D10w) 1,000 mls @ 42 mls/hr IV DIRECT [facility] Insulin Glargine (Lantus) 10 units SUB-Q QHS [facility] Lactulose (Cephulac) 10 gm PO QDAY PRN PRN Reason: Constipation Morphine Sulfate (Morphine) 2 mg IV Q4H PRN PRN Reason: Pain, Moderate (4-6) Ondansetron HCl (Zofran) 4 mg IV Q8H PRN PRN Reason: Nausea And Vomiting Oxycodone/Acetaminophen (Percocet 5/325) 1 tab PO Q8H PRN PRN Reason: Pain, Moderate (4-6) Pravastatin Sodium (Pravachol) 80 mg PO QHS [facility] Promethazine HCl (Phenergan) 25 mg PO BID [facility] Last Admin: 08/04/17 11:32 Dose: Not Given Sertraline HCl (Zoloft) 50 mg PO QDAY [facility] Last Admin: 08/04/17 11:33 Dose: Not Given Sodium Chloride (Sodium Chloride Flush Syringe 10 Ml) 10 ml IV BID [facility] Last Admin: 08/04/17 11:33 Dose: Not Given Sodium Chloride (Sodium Chloride Flush Syringe 10 Ml) 10 ml IV PRN PRN PRN Reason: LINE FLUSH Vancomycin HCl (Vancomycin Pharmacy To Dose) 1 each IV PKCONSULT [facility]; Protocol Review of Systems ROS unobtainable: due to mental status Exam Vital Signs Resp 12 08/03/17 15:15 Narrative exam: Gen: Opens eyes to verbal stimuli. nonverbal CV: S1, S2+ resp: even and unlabored Abd: soft, NT, ND Ext: B/L LE in offloading boot. Dressings c/d/i Sacrum: stage 3 sacral wound without bleeding, erythema. Results - Labs 08/04/17 08:02 08/04/17 13:02 Abnormal lab results 08/03/17 08/03/17 08/04/17 Range/Units 16:27 17:30 08:02 Hgb 7.8 L (11.8-15.2) gm/dl Hct 25.7 L (35.5-45.6) % APTT 42.2 H (24.2-36.6) Sec. Glucose (75-100) mg/dL POC Glucose (70-105) Crossmatch See Detail 08/04/17 08/04/17 08/04/17 Range/Units 12:05 13:02 14:59 Hgb (11.8-15.2) gm/dl Hct (35.5-45.6) % APTT (24.2-36.6) Sec. Glucose 74 L (75-100) mg/dL POC Glucose < 40 L < 40 L (70-105) Crossmatch Diabetes panel 08/04/17 08/04/17 Range/Units 07:51 13:02 Glucose 74 L (75-100) mg/dL Hemoglobin A1c 4.9 (4-6) % Pituitary panel 08/04/17 Range/Units 13:02 Glucose 74 L (75-100) mg/dL Adrenal panel 08/04/17 Range/Units 13:02 Glucose 74 L (75-100) mg/dL Assessment and Plan 77 yo M with sacral decubitus ulcer Stage 3, LE wounds Plan: 1. sacral wound does not appear to be infected or need surgical debridement. Continue offloading and daily wound care to all wounds per fittings tightener. 2. optimize nutrition - patient is on nectar thickened, pureed diet per speech therapy. Per family oral intake is poor however they refused PEG tube 3. Pt to be discharged to hospice today Thank you for this consultation, please call with questions or concerns.
--- NOTE | 2017-08-04 18:22 | Event Note ---
Date: 08/04/17 (Pt not seen). Pt was admitted via the ER due to anemia. He is known to our service from previous admissions due to PVD and ESRD. He was reported to have gangrenous changes to his LLE, and a vascular surgery consult was requested to further evaluate. He apparently has deteriorated rapidly over the last few months, and the pt's family has now elected to make him DNR/AND and converted to palliative care/ inpt hospice. The pt has been d/c'd to hospice. Will cancel the vascular consult for now, can see in the future if needed.
[2017-08-04] MEDS ORDERED: NON-FORMULARY (Simvastatin 40 MG) PO SCH (22:00)
[2017-08-04] MEDS ORDERED: PRAVACHOL PO SCH (22:00)
[2017-08-04] MEDS ORDERED: NON-FORMULARY (Insulin Glargine,Hum.Rec.Anlog [Lantus Solostar] 20 UNITS) SQ SCH (22:00)
[2017-08-04] MEDS ORDERED: LANTUS SUB-Q SCH ×2 (22:00)
[2017-08-05] MEDS ORDERED: VANCOMYCIN/NS 1 GM/250 ML 1 GM/250 ML BAG IV SCH (04:00)
== END 2017-08-04 18:42 | DRG 811 ==
LOC: ED 14:50 → 2B-ACE 17:09
PROVIDERS: ADMIT Internal Medicine; ATTEND Internal Medicine
PROC: 30233N1 Transfusion of Nonautologous Red Blood Cells into Peripheral Vein, Percutaneous Approach (ICD-10-PCS; principal; 2017-08-04)
DX: D64.9 Anemia, unspecified (principal); L89.153 Pressure ulcer of sacral region, stage 3; G93.49 Other encephalopathy; N18.6 End stage renal disease; E11.52 Type 2 diabetes mellitus with diabetic peripheral angiopathy with gangrene; I96 Gangrene, not elsewhere classified; I13.2 Hypertensive heart and chronic kidney disease with heart failure and with stage 5 chronic kidney disease, or end stage renal disease; I42.8 Other cardiomyopathies; E11.649 Type 2 diabetes mellitus with hypoglycemia without coma; E11.22 Type 2 diabetes mellitus with diabetic chronic kidney disease; K21.9 Gastro-esophageal reflux disease without esophagitis; E78.5 Hyperlipidemia, unspecified; I25.10 Atherosclerotic heart disease of native coronary artery without angina pectoris; F32.9 Major depressive disorder, single episode, unspecified; G89.29 Other chronic pain; I50.9 Heart failure, unspecified; M19.90 Unspecified osteoarthritis, unspecified site; E11.621 Type 2 diabetes mellitus with foot ulcer; L97.509 Non-pressure chronic ulcer of other part of unspecified foot with unspecified severity; Z79.82 Long term (current) use of aspirin; Z79.899 Other long term (current) drug therapy; Z79.4 Long term (current) use of insulin; Z86.73 Personal history of transient ischemic attack (TIA), and cerebral infarction without residual deficits; Z99.2 Dependence on renal dialysis; Z66 Do not resuscitate
CPT/HCPCS: 36415; 71045; 80048; 82947; 82962; 83036; 85018; 85027; 85610; 85730; 86850; 86900; 86901; 86920; 87040; A9270-GY; G8996-GN; G8997-GN; J1815; J2543; J3370; J7030; J7040; J7050; P9016; Q0169